=== PATIENT | female | born 1925 | race Caucasian/White ===

== ENCOUNTER 2016-04-08 12:02 | Inpatient (IN) | payer MEDICARE ==
[~2016-04-08] VITALS: Ht 157.5 cm; Wt 62.2 kg
[2016-04-08] MEDS ORDERED: SODIUM CHLORIDE FLUSH 3 ML SYR IV PRN (12:10)
[2016-04-08] MEDS ORDERED: ALBUTEROL 0.083% NEB SOLUTION 2.5 MG/3 ML VIAL INH ONE ×2 (12:10→13:45)
[2016-04-08] MEDS ORDERED: ONDANSETRON 2 MG/ML (Z0FRAN) 2 ML VIAL IV ONE ×2 (12:10→13:45)
[2016-04-08] MEDS ORDERED: SODIUM CHLORIDE FLUSH 10 ML SYR IV PRN (12:10)
[2016-04-08] MEDS ORDERED: SODIUM CHLORIDE 250 ML IV PRN (12:10)
--- NOTE | 2016-04-08 12:25 | NUR ---
RT RT IN ROOM
[2016-04-08 12:43] LABS: MEAN CORPUSCULAR VOLUME 80 FL (80-100); MEAN PLATELET VOLUME 9.1 FL (6.0-9.5); PLATELET COUNT 286 10^3uL (150-450); WHITE BLOOD COUNT 10.52 10^3uL (4.0-11.0)
--- NOTE | 2016-04-08 12:50 | NUR ---
XRAY PORTABLE XRAY IN ROOM
[2016-04-08 12:59] LABS: MEAN CORPUSCULAR HEMOGLOBIN 24.9 PG (26.0-34.0); MEAN CORPUSCULAR HGB CONC 31.3 g/dL (31.0-37.0)
--- NOTE | 2016-04-08 13:02 | NUR ---
UPDATE FAMILY IN ROOM. PATIENT ABLE TO CARRY ON CONVERSATION IN A FEW WORD SENTENCES.
[2016-04-08 13:07] LABS: ALBUMIN 3.9 g/dL (3.4-5.0); ALKALINE PHOSPHATASE 90 U/L (38-126); BUN/CREATININE RATIO 22 (10-20); CALCULATED IONIZED CALCIUM 3.8 mg/dL (3.8-4.6); MAGNESIUM* 1.9 mg/dL (1.6-2.3); TOTAL PROTEIN 7.5 g/dL (6.4-8.5)
[2016-04-08 13:19] LABS: CREATINE KINASE < 20 U/L (30-135)
[2016-04-08] MEDS ORDERED: methylPREDNISolone 125 MG (Solu-MEDROL) VIAL IV ONE (13:20)
[2016-04-08 13:22] LABS: BAND NEUTROPHILS % 4 % (0-6); SEGMENTED NEUTROPHILS % 77 % (51-67)
--- NOTE | 2016-04-08 13:22 | NUR ---
Note clarissa in ED - 04/08/16 at 1329 by [id number] DEPART VERBAL AND WRITTEN DISCHARGE INSTRUCTIONS GIVEN AND UNDERSTOOD. CONDITION STABLE. RELEASED AMBULATORY WITH MOTHER.
[2016-04-08 13:23] LABS: EOSINOPHILS % 1 % (0-4); LYMPHOCYTES # 1.1 #; MONOCYTES # 0.8 #; MONOCYTES % 8 % (3-11); RBC MORPH NORMAL (NORMAL); TOTAL CELLS COUNTED 100
[2016-04-08] MEDS ORDERED: LORazepam 2 MG/ML (ATIVAN) 1 ML VIAL IV ONE (13:40)
[2016-04-08] MEDS ORDERED: morphine INJ 4 MG/ML 1 ML SYRINGE IV ONE (13:45)
[2016-04-08] MEDS ORDERED: BUDESONIDE NEBS 0.5 MG/2ML (PULMICORT) AMP INH ONE (13:45)
[2016-04-08] MEDS ORDERED: FUROSEMIDE 20 MG/2 ML (LASIX) VIAL IV ONE (13:45)
--- NOTE | 2016-04-08 14:30 | NUR ---
STATUS UA OBTAINED AND PATIENT CHANGED INTO GOWN.
--- NOTE | 2016-04-08 14:37 | NUR ---
Dr. Guerin speaking now with Hospitalist, Dr. Lucia, about possible admission.
[2016-04-08 14:51] LABS: BILIRUBIN,URINE Negative (Negative); CLARITY,URINE Cloudy; COLOR,URINE Yellow; GLUCOSE, URINE (UA) Negative (Negative); LEUKOCYTE ESTERASE ,URINE Negative (Negative); UROBILINOGEN,URINE 0.2 mg/dL (0.2-1.0)
--- NOTE | 2016-04-08 14:53 | NUR ---
MED REC COMPLETE--current med list obtained from list provided by skilled nursing MARC from [place].
[2016-04-08] MEDS ORDERED: DOCUSATE SODIUM 100 MG (COLACE) CAP PO PRN (15:00)
[2016-04-08] MEDS ORDERED: ACETAMINOPHEN 325 MG TAB (TYLENOL) PO PRN (15:00)
[2016-04-08] MEDS: ALBUTEROL/IPRATROPIUM 3MG-0.5MG/3ML (DUONEB) NEB VIAL INH SCH ×2 (15:00→19:36)
[2016-04-08] MEDS ORDERED: PROMETHAZINE HCL INJ 12.5 MG in SODIUM CHLORIDE 25 ML IV PRN (15:00)
[2016-04-08] MEDS ORDERED: ALBUTEROL 0.083% NEB SOLUTION 2.5 MG/3 ML VIAL INH PRN (15:00)
[2016-04-08] MEDS ORDERED: MAG HYDROX/AL HYDROX/SIMETH 200-200-20/5 ML (MAG-AL PLUS) 30 ML UDC PO PRN (15:00)
[2016-04-08] MEDS ORDERED: MAGNESIUM HYDROXIDE 80MG/ML (MILK OF MAGNESIA) 30 ML UDC PO PRN (15:00)
[2016-04-08] MEDS ORDERED: CALCIUM CARBONATE CHEWABLE 300 MG (TUMS) TABLET PO PRN (15:00)
[2016-04-08] MEDS ORDERED: ONDANSETRON 4 MG (ZOFRAN) ORAL DISSOLVE TAB PO PRN (15:00)
[2016-04-08 15:04] LABS: RBC,URINE 0-2 /HPF; URINE CENTRIFUGED VOLUME 12 mL
[2016-04-08] MEDS ORDERED: NS FLUSH 3 ML PRN IV (15:15)
--- NOTE | 2016-04-08 15:40 | NUR ---
PT ADMITTED TO 316 FROM ED VIA ED CART, IS LETHARGIC, RESPONDS TO MOVEMENT TO BED FROM CART, OPENS EYES AND ANSWERS LEAD WEB DEVELOPER QUESTIONS APPROPRIATELY. LS COURSE, ABD WITH HYPOACTIVE BS, HEART IRREG, IV IN LFA PATENT WITH NS INFUSING AT 70CC/HR, THIS IS TO CONTINUE PER ОЛЕГ [place]IN[place] FLOOR SPECIALIST, RT & LEAD WEB DEVELOPER IN ROOM.
[2016-04-08 15:46] VITALS: BP 127/66
[2016-04-08 15:47] VITALS: BP 127/66
[2016-04-08] MEDS ORDERED: VANCOMYCIN PHARMACY PROTOCOL IV SCH ×2 (17:00)
[2016-04-08] MEDS ORDERED: VANCOMYCIN 1,000 MG in SODIUM CHLORIDE 250 ML IV ONE (17:00)
--- NOTE | 2016-04-08 17:33 | NUR ---
FABI BENNETT CALLED [facility] IN [place] AND RECEIVED A VOICE MAIL ONLY, SHE LEFT A VOICE MAIL STATING DR. OG WOULD LIKE COPIES OF THE H & P AND DISCHARGE SUMMARY FROM HER RECENT STAY.
--- NOTE | 2016-04-08 17:37 | NUR ---
ORDER FROM DR. OG TO BERNIE CURRENT IVF WHICH IS DONE AT 1735, IV SITE PATENT & WITHOUT REDNESS/EDEMA/PAIN, PT AWAKE, REQ COLD WATER WHICH WAS PROVIDED. CALL LIGHT IN REACH
[2016-04-08] MEDS: meTOprolol TARTRATE 50 MG (LOPRESSOR) TABLET PO SCH (18:18)
[2016-04-08] MEDS ORDERED: DOXYCYCLINE 100 MG (VIBRAMYCIN) TABLET PO SCH (19:00)
[2016-04-08 19:34] VITALS: BP 117/57
[2016-04-08] MEDS: BUDESONIDE NEBS 0.5 MG/2ML (PULMICORT) AMP INH SCH (19:36)
[2016-04-08] MEDS ORDERED: SODIUM CHLORIDE 100 ML ONE (20:11)
[2016-04-08] MEDS ORDERED: PIPERACILLIN/TAZOBACTAM 3.375 GM (ZOSYN) VIAL IV ONE (20:11)
[2016-04-08] MEDS: methylPREDNISolone 125 MG (Solu-MEDROL) VIAL IV SCH (20:21)
[2016-04-08] MEDS: SIMvastatin 40 MG (ZOCOR) TAB PO SCH (20:21)
[2016-04-08] MEDS: clonazePAM 0.5 MG (KlonoPIN) TAB PO SCH (20:21)
[2016-04-08] MEDS: guaiFENesin ER 600 MG (MUCINEX) TAB PO SCH (20:21)
[2016-04-08] MEDS: PIPERACILLIN/TAZOBACTAM 3.375 GM in SODIUM CHLORIDE 100 ML IV SCH ×2 (20:21→21:40)
[2016-04-08] MEDS: MIRTAZAPINE 15 MG (REMERON) TABLET PO SCH (20:21)
[2016-04-08 20:45] LABS: ALBUMIN 3.6 g/dL (3.4-5.0); PHOSPHORUS 3.6 mg/dL (2.4-4.9)
[2016-04-08] MEDS ORDERED: MAGNESIUM 1 GM/100 ML IVPB 100 ML IV SCH (21:20)
[2016-04-08] MEDS ORDERED: MAGNESIUM 1 GM/100 ML IVPB 100 ML IV ONE (21:45)
[2016-04-08] MEDS: POTASSIUM CHLORIDE ER 20 MEQ TABLET PO SCH (21:57)
[2016-04-09 00:22] VITALS: BP 106/71
[2016-04-09 04:20] VITALS: BP 122/70
[2016-04-09] MEDS: PIPERACILLIN/TAZOBACTAM 3.375 GM in SODIUM CHLORIDE 100 ML IV SCH ×3 (06:02→22:02)
[2016-04-09 06:37] LABS: MEAN CORPUSCULAR VOLUME 80 FL (80-100); MEAN PLATELET VOLUME 9.1 FL (6.0-9.5); PLATELET COUNT 302 10^3uL (150-450); WHITE BLOOD COUNT 7.48 10^3uL (4.0-11.0)
--- NOTE | 2016-04-09 06:42 | NUR ---
Patient rests in bed throughout night without needs. Arouses easily but very sleepy during night. No needs at this time.
[2016-04-09 07:05] LABS: MEAN CORPUSCULAR HEMOGLOBIN 24.7 PG (26.0-34.0); MEAN CORPUSCULAR HGB CONC 31.1 g/dL (31.0-37.0)
[2016-04-09] MEDS: BUDESONIDE NEBS 0.5 MG/2ML (PULMICORT) AMP INH SCH ×2 (07:26→21:24)
[2016-04-09] MEDS: ALBUTEROL/IPRATROPIUM 3MG-0.5MG/3ML (DUONEB) NEB VIAL INH SCH ×4 (07:26→21:24)
[2016-04-09 07:33] LABS: ALBUMIN 3.4 g/dL (3.4-5.0); ANION GAP 14.3 MEQ/L (3-15); PHOSPHORUS 3.7 mg/dL (2.4-4.9)
[2016-04-09 07:45] VITALS: BP 143/66
[2016-04-09 07:51] LABS: BAND NEUTROPHILS % 2 % (0-6); EOSINOPHILS % 2 % (0-4); LYMPHOCYTES # 0.3 #; MONOCYTES % 0 % (3-11); RBC MORPH NORMAL (NORMAL); SEGMENTED NEUTROPHILS % 92 % (51-67); TOTAL CELLS COUNTED 100
[2016-04-09] MEDS: POLYETHYLENE GLYCOL 17 GM (MIRALAX) PACKET PO PRN (08:07)
[2016-04-09] MEDS: clonazePAM 0.5 MG (KlonoPIN) TAB PO SCH ×2 (08:09→22:00)
[2016-04-09] MEDS: methylPREDNISolone 125 MG (Solu-MEDROL) VIAL IV SCH ×2 (08:09→22:01)
[2016-04-09] MEDS: NS FLUSH 10 ML PRN IV ×2 (08:09→12:33)
[2016-04-09] MEDS: guaiFENesin ER 600 MG (MUCINEX) TAB PO SCH ×2 (08:10→22:01)
[2016-04-09] MEDS: CHOLECALCIFEROL 1000 INT UNITS (VITAMIN D3) TABLET PO SCH (08:10)
[2016-04-09] MEDS: CYANOCOBALAMIN 1000 MCG (VITAMIN B-12) TABLET PO SCH (08:10)
[2016-04-09] MEDS: meTOprolol TARTRATE 50 MG (LOPRESSOR) TABLET PO SCH ×2 (08:10→17:55)
[2016-04-09] MEDS: POTASSIUM CHLORIDE ER 20 MEQ TABLET PO SCH ×2 (08:11→17:56)
[2016-04-09] MEDS: NS FLUSH 3 ML DAILY IV SCH (08:20)
[2016-04-09] MEDS ORDERED: VANCOMYCIN COMPOUNDED BY PHARMACY IV SCH (08:55)
--- NOTE | 2016-04-09 08:55 | NUR ---
Vancomycin Dosing: Pharmacy managed S: SIRS, Possible Sepsis: Concern for HCAP. Cultures pending. Empirically treating with Pip/Tazo and vancomycin. Strive for sputum culture. O: 89y/o F, wt = 76 kg, SCr = 0.59 CrCl = 63 ml/min A/P: Vancomycin 1250mg IV q24hr. Predicted trough of 15 mcg/mL for therapeutic goal of 15-20mcg/ml. Trough to be drawn before 4th dose (04-11-16 @ 1130). Will monitor and adjust if needed.
[2016-04-09 11:48] VITALS: BP 134/73
[2016-04-09] MEDS: VANCOMYCIN 1250 MG in SODIUM CHLORIDE 250 ML IV SCH (12:33)
[2016-04-09 16:00] VITALS: BP 128/77
[2016-04-09] MEDS: warFARin 2 MG (COUMADIN) TAB PO SCH (17:56)
[2016-04-09] MEDS: LORazepam 0.5 MG (ATIVAN) TABLET PO PRN (19:49)
[2016-04-09 19:57] VITALS: BP 140/77
[2016-04-09] MEDS: SIMvastatin 40 MG (ZOCOR) TAB PO SCH (22:01)
[2016-04-09] MEDS: MIRTAZAPINE 15 MG (REMERON) TABLET PO SCH (22:01)
[2016-04-10] VITALS (7 sets, daily range): BP systolic 132–181; BP diastolic 68–92
[2016-04-10] MEDS: ALBUTEROL/IPRATROPIUM 3MG-0.5MG/3ML (DUONEB) NEB VIAL INH SCH ×4 (05:41→19:23)
[2016-04-10] MEDS: BUDESONIDE NEBS 0.5 MG/2ML (PULMICORT) AMP INH SCH ×3 (05:41→19:23)
[2016-04-10] MEDS: PIPERACILLIN/TAZOBACTAM 3.375 GM in SODIUM CHLORIDE 100 ML IV SCH ×3 (06:28→22:42)
[2016-04-10 06:31] LABS: MEAN CORPUSCULAR VOLUME 81 FL (80-100); MEAN PLATELET VOLUME 9.4 FL (6.0-9.5); PLATELET COUNT 313 10^3uL (150-450); WHITE BLOOD COUNT 16.15 10^3uL (4.0-11.0)
--- NOTE | 2016-04-10 06:46 | NUR ---
Patient rests in bed throughout needs. Reports no pain. States "I need to cough, I feel like my throat is gurgling." Encouraged patient to cough. No needs at this time.
[2016-04-10 07:22] LABS: ALBUMIN 3.6 g/dL (3.4-5.0); MAGNESIUM* 2.1 mg/dL (1.6-2.3)
[2016-04-10 07:23] LABS: MEAN CORPUSCULAR HEMOGLOBIN 25.1 PG (26.0-34.0)
[2016-04-10 07:30] LABS: ANISOCYTOSIS SLIGHT; BAND NEUTROPHILS % 4 % (0-6); EOSINOPHILS % 0 % (0-4); LYMPHOCYTES # 0.6 #; MONOCYTES # 0.2 #; MONOCYTES % 1 % (3-11); RBC MORPH SEE REFERENCE (NORMAL); SEGMENTED NEUTROPHILS % 91 % (51-67); TOTAL CELLS COUNTED 100
--- NOTE | 2016-04-10 07:50 | NUR ---
Patient resting in bed at time of assessment. Alert and orientated X4. Denies any pain at this time. Pt denies any feelings of anxiousness this morning, states she slept well. No complains of shortness of air. Denies any needs or concerns at this time. Will continue to monitor.
[2016-04-10] MEDS: CHOLECALCIFEROL 1000 INT UNITS (VITAMIN D3) TABLET PO SCH (08:05)
[2016-04-10] MEDS: CYANOCOBALAMIN 1000 MCG (VITAMIN B-12) TABLET PO SCH (08:05)
[2016-04-10] MEDS: predniSONE 20 MG (DELTASONE) TABLET PO SCH (08:05)
[2016-04-10] MEDS: POTASSIUM CHLORIDE ER 20 MEQ TABLET PO SCH (08:05)
[2016-04-10] MEDS: meTOprolol TARTRATE 50 MG (LOPRESSOR) TABLET PO SCH ×2 (08:05→17:28)
[2016-04-10] MEDS: guaiFENesin ER 600 MG (MUCINEX) TAB PO SCH ×2 (08:05→22:33)
[2016-04-10] MEDS: clonazePAM 0.5 MG (KlonoPIN) TAB PO SCH ×2 (08:07→22:33)
[2016-04-10] MEDS: NS FLUSH 3 ML DAILY IV SCH ×2 (09:00→19:49)
[2016-04-10] MEDS: VANCOMYCIN 1250 MG in SODIUM CHLORIDE 250 ML IV SCH (11:49)
[2016-04-10] MEDS ORDERED: VANCOMYCIN COMPOUNDED BY PHARMACY IV SCH (13:30)
--- NOTE | 2016-04-10 15:33 | NUR ---
Assumed care from Kay Caldera RN at 1500. Pt sitting up in bed, family at bedside. Skin warm, dry, intact. Resprs nonlabored, even on 2.5L NC. SL intact. Pt denies needs. Call light within reach.
[2016-04-10] MEDS: LORazepam 0.5 MG (ATIVAN) TABLET PO PRN ×3 (15:59→19:55)
--- NOTE | 2016-04-10 16:09 | NUR ---
RT informed this nurse that pt was having a hard time breathing. Upon assessing, pt states she hasn't had this hard of a time breathing for a while. Lung sounds wet per RT. VS 181/92, 101HR, 18 RR, 97% 2.5L, 97.9 temp. PO Ativan given at this time. Dany notified.
--- NOTE | 2016-04-10 16:45 | NUR ---
Rechecked VS: 156/88, 109 HR, 15 RR, 96% O2 on 2.5L. Pt states SOA is better, but still there. Dany aware. Will continue to monitor.
[2016-04-10] MEDS: warFARin 2 MG (COUMADIN) TAB PO SCH (17:28)
--- NOTE | 2016-04-10 19:25 | NUR ---
Pt found reclining in her chair, SPO2 99% on 3 l/min, HR 91, RR 22 and labored, BS fine crackles in all lung tadeo with audible wheezing coming from oropharynx area. Duoneb and Pulmicort given via SVN/MASK with no change in BS post Tx. Dr Saenz informed.
[2016-04-10] MEDS ORDERED: guaiFENesin SYRUP 200 MG/10 ML (ROBITUSSIN) UDC PO PRN (19:35)
[2016-04-10] MEDS: morphine INJ 2 MG/ML 1 ML SYRINGE IV PRN (19:50)
--- NOTE | 2016-04-10 19:55 | NUR ---
Patient very anxious. MS 2mg administered IV for respiratory distress. Ativan 0.5 mg administered also for anxiety. Patient rests in chair. Patient wheezing. Patient calmed down readily after MS given and no further audible wheezing noted. Patient wants to rest in the chair for awhile. Call light within reach.
[2016-04-10] MEDS: MIRTAZAPINE 15 MG (REMERON) TABLET PO SCH (22:33)
[2016-04-10] MEDS: SIMvastatin 40 MG (ZOCOR) TAB PO SCH (22:33)
[2016-04-10] MEDS: NS FLUSH 10 ML PRN IV (22:42)
--- NOTE | 2016-04-11 | NUR ---
Wanting to go to bed. Ambulates well, slow, with walker. Assisted to bed. Call light within reach. Oxygen on.
--- NOTE | 2016-04-11 | NUR ---
Assisted patient to the commode. Does well is weak. No respiratory distress or anxiety. Patient is continent. No skin breakdown. Bernadette care done for patient. Returned to bed. Patient moves slowly, yet does well. Skin color pale. Bed alarm on for safety. Call light within reach.
[2016-04-11 00:05] VITALS: BP 127/84
[2016-04-11 04:17] VITALS: BP 100/73
[2016-04-11] MEDS: LORazepam 0.5 MG (ATIVAN) TABLET PO PRN ×4 (05:00→21:15)
--- NOTE | 2016-04-11 05:00 | NUR ---
Assisted patient to commode. Voided 400 cc yellow urine. Returned to bed. Ativan 0.5mg administered per patient request for anxiety. Respirations 20 and non-labored at this time. Bed alarm on. HOB elevated 35 degrees. Patient states that she is comfortable at this time. SL patent in left wrist area, slightly ecchymotic near site. No erythema noted. Patient denies pain at IV site.
[2016-04-11] MEDS: PIPERACILLIN/TAZOBACTAM 3.375 GM in SODIUM CHLORIDE 100 ML IV SCH ×3 (05:26→22:00)
--- NOTE | 2016-04-11 06:30 | NUR ---
Patient wanting up in the chair this morning. Doing well. Elevates feet when he is resting in the recliner. PICC intact and without complications to site in left arm. Patient remains weak, but is slowly getting stronger. Accu check 116 mg/dl. No concerns voiced at this time. Call light within reach. Addendum: 04/11/16 at 0831 by Corina Sanchez RN Above note on wrong chart. TAMIKA GOINS
[2016-04-11] MEDS: BUDESONIDE NEBS 0.5 MG/2ML (PULMICORT) AMP INH SCH ×2 (07:33→20:03)
[2016-04-11] MEDS: ALBUTEROL/IPRATROPIUM 3MG-0.5MG/3ML (DUONEB) NEB VIAL INH SCH ×4 (07:33→20:03)
--- NOTE | 2016-04-11 07:36 | NUR ---
Pt is sitting up in bed, resting comfortably, SPO2 90% on 3L. Tolerated tx well.
[2016-04-11 07:52] VITALS: BP 124/68
[2016-04-11] MEDS: CHOLECALCIFEROL 1000 INT UNITS (VITAMIN D3) TABLET PO SCH (08:21)
[2016-04-11] MEDS: guaiFENesin ER 600 MG (MUCINEX) TAB PO SCH ×2 (08:21→20:24)
[2016-04-11] MEDS: clonazePAM 0.5 MG (KlonoPIN) TAB PO SCH ×2 (08:21→20:25)
[2016-04-11] MEDS: meTOprolol TARTRATE 50 MG (LOPRESSOR) TABLET PO SCH ×2 (08:21→17:12)
[2016-04-11] MEDS: predniSONE 20 MG (DELTASONE) TABLET PO SCH (08:22)
[2016-04-11] MEDS: CYANOCOBALAMIN 1000 MCG (VITAMIN B-12) TABLET PO SCH (08:22)
[2016-04-11] MEDS: WARFARIN MONITORING XX SCH (08:22)
[2016-04-11] MEDS: ALBUTEROL 0.083% NEB SOLUTION 2.5 MG/3 ML VIAL INH PRN ×3 (09:06→18:20)
--- NOTE | 2016-04-11 09:32 | NUR ---
This nurse sitting at bedside, encouraging patient to take slow, deep breaths. Pt c/o SOA- Resp 20, using accessory muscles. O2 sats 92% on 3L oximask while talking and anxious-changed from nasal canula at this time due to mouth breathing. HR 82. RT has been notified and has given breathing treatments twice, Ativan 0.5mg PO given as ordered for anxiety at 0853. PT and OT tried working with patient this AM, but pt "too short of air to participate." Will cont to monitor patient closely.
--- NOTE | 2016-04-11 09:37 | NUR ---
This nurse remains at bedside. Pt resting with eyes closed- resp rate 20, O2 94% on 3L oximask, HR 82. rouses easily to noises in corona- then begins to c/o SOA. Will cont to monitor patient.
--- NOTE | 2016-04-11 09:52 | NUR ---
Dr. Saenz notified of all c/o SOA- She okays administration of IV morphine now
[2016-04-11] MEDS: morphine INJ 2 MG/ML 1 ML SYRINGE IV PRN ×3 (09:55→19:55)
--- NOTE | 2016-04-11 09:57 | NUR ---
Morphine 2mg IV administered slow IVP over 5 full minutes as ordered and okayed by Dr. Saenz for pt constant c/o SOA while on 3L O2 via oximask- sats 95%, HR 80, RR 20 at this time.
--- NOTE | 2016-04-11 10:48 | NUR ---
Pt awake, eating ice chips. Resp rate 22, O2 sats 93% on 3L oxymask, HR 79.
[2016-04-11 11:45] VITALS: BP 155/75
[2016-04-11] MEDS: VANCOMYCIN 1250 MG in SODIUM CHLORIDE 250 ML IV SCH (12:10)
--- NOTE | 2016-04-11 12:10 | NUR ---
Pt still c/o SOA- Sats 93% on 3L oxymask, HR 89, RR 22 using accessory muscles, retractions noted in neck. Skin warm, dry, pale. Called RT for treatment, Daughter in law from room 306 is at bedside. Lena RT in room now.
[2016-04-11] MEDS ORDERED: VANCOMYCIN COMPOUNDED BY PHARMACY IV SCH (12:15)
--- NOTE | 2016-04-11 12:15 | NUR ---
Vancomycin Dosing: Pharmacy managed S: SIRS, Possible Sepsis: Concern for HCAP. Cultures negative to date. Empirically treating with Pip/Tazo and vancomycin. O: 89y/o F, wt = 76 kg, SCr = 0.6 CrCl = 78 ml/min. WBC = 16.15, bands 4. A/P: current dosing = Vancomycin 1250mg IV q24hr. Trough drawn before 4th dose (04-11-16 @ 1130) = less than 5 mcg/mL. Incresing Vancomycin to 1250mg IV q12h. Predicted trough of 16 mcg/mL for therapeutic goal of 15-20mcg/ml. Next trough to be drawn before 5th dose after change (04-13-16 @ 0830). Will monitor and adjust if needed.
--- NOTE | 2016-04-11 12:42 | NUR ---
Pt verbalizes continued SOA. VSS: BP 142/73, HR 92, 97.4 temporal, 95% on 3L oxymask, RR 20- gurgling sound and audible wheezes noted same as before as well as retractions at clavicles. Pt asks repeatedly, "am I going to get better?" Encouraged pt to try to keep calm, taking slow deep breaths but pt unable to demonstrate this. Addendum: 04/11/16 at 1302 by Eden Benoit RN Morphine 2mg IV given at the above time: 1242 Addendum: 04/11/16 at 1309 by Eden Benoit RN Requested Dr. Saenz to come to assess pt by Romero GOINS for this nurse while I was in room.
--- NOTE | 2016-04-11 12:59 | NUR ---
Pt resting with eyes closed, resp rate 20, not as increased work of breathing compared to before Morphine administration. Gurgles not as loud. O2 remains at 3L oxymask sats 95%. HR 94. Will cont to monitor patient. Addendum: 04/11/16 at 1301 by Eden Benoit RN This nurse sitting at bedside for frequent monitoring and ease her anxiety about being alone in room
--- NOTE | 2016-04-11 13:06 | NUR ---
Dr. Saenz at [facility]. Addendum: 04/11/16 at 1309 by Eden Benoit RN Kari Barnard [facility]
--- NOTE | 2016-04-11 14:09 | NUR ---
Patients family was here to visit- leaves now. Pt awake, no current c/o SOA, eating ice chips. O2 remains on 3L oxymask-sats 94%. RR 22, no gurgling noted at this time. HR 98. Will cont to monitor patient closely. Seems more at ease after Dr. Saenz assessed pt. Addendum: 04/11/16 at 1413 by Eden Benoit RN Zosyn infusing as ordered at 25ml/hr. Pt expectorates small amount thick, yellow sputum at times.
--- NOTE | 2016-04-11 15:24 | NUR ---
Pt appears to be relaxed at this time, pt is on 3L via oxi mask, tolerated tx well.
[2016-04-11 16:00] VITALS: BP 141/68
[2016-04-11] MEDS: warFARin 2 MG (COUMADIN) TAB PO SCH (17:12)
--- NOTE | 2016-04-11 17:38 | NUR ---
Pt has been up to commode- voided 300ml clear yellow urine. Transferred back to bed- O2 remains at 3L oxymask. RR 24-26 when transferring. but recovers to 20 RR once to bed. When asked if she is comfortable in bed, patient states she is comfortable. Supper meds given with applesauce. No c/o at this time. Audible wheezes and gurgling noted at times.
--- NOTE | 2016-04-11 18:25 | NUR ---
Zosyn infusion complete- pt found sitting on edge of bed, eating ice chips. Asks for breathing treatment- RT called. O2 remains on at 3L oxymask, RR 20. Bed alarm and tabs alarm intact for pt safety.
[2016-04-11] MEDS: NS FLUSH 10 ML PRN IV ×2 (19:55→20:25)
--- NOTE | 2016-04-11 19:55 | NUR ---
Patient resting in bed. Oxygen on at 3 liters per mask. Asks for ice chips as it makes her throat feel better. HOB elevated 45 degrees. Is alert. Having some anxiety and air hunger. MS 2mg administered IV. IV leaking and dc'd. IV restarted in right wrist using a 22 gauge needle without difficulty. Patient tolerated well. No concerns at this time.
--- NOTE | 2016-04-11 20:06 | NUR ---
Pt found lying in bed on 3 l/min OM, SPO2 94%, RR 14 and mildly labored, HR 87 with diminished Rhonchi and wheezes throughout all lung tadeo before and after Duoneb and 0.5 mg Pulmicort via SVN/MASK. Pt is very sleepy at this time and does not cough uppon request, but is able to answer questions appropriately.
[2016-04-11] MEDS: SIMvastatin 40 MG (ZOCOR) TAB PO SCH (20:25)
[2016-04-11] MEDS: MIRTAZAPINE 15 MG (REMERON) TABLET PO SCH (20:25)
--- NOTE | 2016-04-11 21:10 | NUR ---
Ativan 0.5 mg administered for anxiety. Patient takes HS Meds well with applesauce. No other concerns at this time.
[2016-04-11 21:52] VITALS: BP 134/74
[2016-04-11] MEDS ORDERED: VANCOMYCIN 1250 MG in SODIUM CHLORIDE 250 ML IV SCH (22:00)
--- NOTE | 2016-04-12 | NUR ---
Patient rests quietly. Resper's 24 and even. Skin warm and dry. Color pale. Oxygen remains on. Bed alarm on for safety.
[2016-04-12 00:23] VITALS: BP 124/79
[2016-04-12 04:19] VITALS: BP 144/73
[2016-04-12] MEDS: PIPERACILLIN/TAZOBACTAM 3.375 GM in SODIUM CHLORIDE 100 ML IV SCH ×2 (05:49→13:38)
--- NOTE | 2016-04-12 06:30 | NUR ---
Patient rested well tonight. Asking for a treatment. RT called. Respirations slightly labored at 24 per minute. Is alert and oriented. Denies pain, just difficulty breathing.
[2016-04-12] MEDS: ALBUTEROL/IPRATROPIUM 3MG-0.5MG/3ML (DUONEB) NEB VIAL INH SCH ×4 (06:42→19:41)
[2016-04-12 06:47] LABS: MEAN CORPUSCULAR VOLUME 83 FL (80-100); PLATELET COUNT 331 10^3uL (150-450); WHITE BLOOD COUNT 10.75 10^3uL (4.0-11.0)
--- NOTE | 2016-04-12 06:54 | NUR ---
MS 2mg administered for respiratory distress/air hunger. Patient given a few ice chips for dryness of her throat. Oxygen remains on at 3 liters per mask. Bed alarm on. Cooperative with cares.
[2016-04-12] MEDS: morphine INJ 2 MG/ML 1 ML SYRINGE IV PRN ×3 (06:56→22:13)
[2016-04-12 07:02] LABS: ALBUMIN 3.5 g/dL (3.4-5.0); MAGNESIUM* 2.1 mg/dL (1.6-2.3); PHOSPHORUS 3.9 mg/dL (2.4-4.9)
[2016-04-12 07:10] LABS: BAND NEUTROPHILS % 8 % (0-6); EOSINOPHILS % 1 % (0-4); LYMPHOCYTES # 1.2 #; MEAN CORPUSCULAR HEMOGLOBIN 25.3 PG (26.0-34.0); MEAN CORPUSCULAR HGB CONC 30.4 g/dL (31.0-37.0); MONOCYTES # 0.4 #; MONOCYTES % 4 % (3-11); SEGMENTED NEUTROPHILS % 74 % (51-67); TOTAL CELLS COUNTED 100
[2016-04-12 07:11] LABS: ANISOCYTOSIS SLIGHT; POIKILOCYTOSIS MODERATE; RBC MORPH SEE REFERENCE (NORMAL)
[2016-04-12 07:16] LABS: ANION GAP 11.8 MEQ/L (3-15)
--- NOTE | 2016-04-12 07:28 | NUR ---
Pt seems to be resting comfortably at this time- RR 18-20. O2 91-92% on 3L oxymask. HR 97. Wakes easily. Skin warm, dry, pink. Yellow gown in place, bed alarm turned on for patient safety.
[2016-04-12 07:55] VITALS: BP 122/67
[2016-04-12] MEDS: CHOLECALCIFEROL 1000 INT UNITS (VITAMIN D3) TABLET PO SCH (09:17)
[2016-04-12] MEDS: guaiFENesin ER 600 MG (MUCINEX) TAB PO SCH ×2 (09:17→22:12)
[2016-04-12] MEDS: meTOprolol TARTRATE 50 MG (LOPRESSOR) TABLET PO SCH ×2 (09:17→17:18)
[2016-04-12] MEDS: CYANOCOBALAMIN 1000 MCG (VITAMIN B-12) TABLET PO SCH (09:17)
[2016-04-12] MEDS: predniSONE 20 MG (DELTASONE) TABLET PO SCH (09:17)
[2016-04-12] MEDS: clonazePAM 0.5 MG (KlonoPIN) TAB PO SCH ×2 (09:17→22:12)
[2016-04-12] MEDS: WARFARIN MONITORING XX SCH (09:18)
[2016-04-12] MEDS: NS FLUSH 3 ML DAILY IV SCH (09:18)
[2016-04-12] MEDS: LORazepam 0.5 MG (ATIVAN) TABLET PO PRN ×2 (09:19→17:18)
[2016-04-12] MEDS: BUDESONIDE NEBS 0.5 MG/2ML (PULMICORT) AMP INH SCH ×2 (10:35→19:41)
[2016-04-12] MEDS: NS FLUSH 10 ML PRN IV ×2 (10:53→22:13)
--- NOTE | 2016-04-12 10:58 | NUR ---
Pt given Morphine 2mg IV for increased SOA. RR 22, O2 sats 95% on 3L oxymask, HR 79. AJ from RT just gave a prn breathing treatment. Pt states it was ineffective. Visitor at bedside. Will cont to monitor patient.
[2016-04-12 12:00] VITALS: BP 139/68
[2016-04-12 16:00] VITALS: BP 132/72
[2016-04-12] MEDS: ALBUTEROL 0.083% NEB SOLUTION 2.5 MG/3 ML VIAL INH PRN (16:36)
--- NOTE | 2016-04-12 17:32 | NUR ---
Pt seems to be resting comfortably in bed, easily wakes to name. Remains on 3L oxymask. RR 20, no distress at this time. Family remains at bedside. Call light within reach- calls appropriately as needed.
[2016-04-12] MEDS: DOXYCYCLINE 100 MG (VIBRAMYCIN) TABLET PO SCH (18:04)
[2016-04-12 19:44] VITALS: BP 138/66
--- NOTE | 2016-04-12 20:00 | NUR ---
Patient resting in bed watching the game with her daughter. Daughter is staying the night. Patient appears more calm with her here. Skin color remains pale. Patient is alert and oriented. Takes her meds with applesauce and then ice chips. Breathing easy at this time. Respirations 24 and non-labored. No other requests at this time.
[2016-04-12] MEDS: methylPREDNISolone 125 MG (Solu-MEDROL) VIAL IV SCH (22:11)
[2016-04-12] MEDS: MIRTAZAPINE 15 MG (REMERON) TABLET PO SCH (22:12)
[2016-04-12] MEDS: DULoxetine 30 MG (CYMBALTA) CAPSULE PO SCH (22:12)
[2016-04-12] MEDS: SIMvastatin 40 MG (ZOCOR) TAB PO SCH (22:13)
--- NOTE | 2016-04-12 22:13 | NUR ---
MS 2mg administered for respiratory/air hunger. Patient repositioned in bed. Sat up in bed 45 degrees to breathe better. Eating ice chips. Up to commode earlier and voided. Daughter sleeping in the recliner. Call light within reach.
[2016-04-13 00:29] VITALS: BP 147/84
[2016-04-13 04:24] VITALS: BP 148/81
--- NOTE | 2016-04-13 06:30 | NUR ---
Patient rested well tonight. At around 5am, patients saturation was 86%. Turned Oxygen up to 4.5 liters per OM. Did let RT know. Patient breathing easier after that. Patient does not like to turn on her sides, due to her difficulty getting her air. Repositioned in bed several times. Patient pleasant and cooperative with cares. Call light within reach.
[2016-04-13 06:41] LABS: MEAN CORPUSCULAR VOLUME 84 FL (80-100); MEAN PLATELET VOLUME 9.4 FL (6.0-9.5); PLATELET COUNT 356 10^3uL (150-450); WHITE BLOOD COUNT 8.82 10^3uL (4.0-11.0)
[2016-04-13 06:50] LABS: MEAN CORPUSCULAR HEMOGLOBIN 24.7 PG (26.0-34.0); MEAN CORPUSCULAR HGB CONC 29.4 g/dL (31.0-37.0)
[2016-04-13 07:00] LABS: BAND NEUTROPHILS % 0 % (0-6); EOSINOPHILS % 0 % (0-4); LYMPHOCYTES # 0.5 #; MONOCYTES % 0 % (3-11); RBC MORPH SEE REFERENCE (NORMAL); SEGMENTED NEUTROPHILS % 94 % (51-67); TOTAL CELLS COUNTED 100
[2016-04-13] MEDS: DOXYCYCLINE 100 MG (VIBRAMYCIN) TABLET PO SCH ×2 (07:00→18:09)
[2016-04-13 07:01] LABS: ANISOCYTOSIS SLIGHT; HYPOCHROMASIA SLIGHT
[2016-04-13] MEDS: BUDESONIDE NEBS 0.5 MG/2ML (PULMICORT) AMP INH SCH (07:09)
[2016-04-13] MEDS: ALBUTEROL/IPRATROPIUM 3MG-0.5MG/3ML (DUONEB) NEB VIAL INH SCH ×4 (07:09→21:48)
--- NOTE | 2016-04-13 07:13 | NUR ---
Pt found lying in bed on 4.5 l/min OM, SPO2 98%, HR 86, RR 18 and non labored, BS coarse crackles in all lung tadeo before and after Duoneb and Pulmicort via SVN/MASK which was tolerated well. No change in BS post Tx, Pt has a weak ineffective loose cough and is too weak to do acapella correctly. O2 titrated to 3.5 l/min.
[2016-04-13 07:16] LABS: ALBUMIN 3.2 g/dL (3.4-5.0); MAGNESIUM* 2.1 mg/dL (1.6-2.3); PHOSPHORUS 4.1 mg/dL (2.4-4.9)
[2016-04-13 08:04] VITALS: BP 111/78
[2016-04-13] MEDS: WARFARIN MONITORING XX SCH (09:00)
[2016-04-13] MEDS: methylPREDNISolone 125 MG (Solu-MEDROL) VIAL IV SCH ×2 (09:40→20:35)
[2016-04-13] MEDS: NS FLUSH 3 ML DAILY IV SCH (09:41)
[2016-04-13] MEDS: DULoxetine 30 MG (CYMBALTA) CAPSULE PO SCH ×2 (09:41→20:35)
[2016-04-13] MEDS: CHOLECALCIFEROL 1000 INT UNITS (VITAMIN D3) TABLET PO SCH (09:41)
[2016-04-13] MEDS: guaiFENesin ER 600 MG (MUCINEX) TAB PO SCH ×2 (09:42→20:35)
[2016-04-13] MEDS: CYANOCOBALAMIN 1000 MCG (VITAMIN B-12) TABLET PO SCH (09:42)
[2016-04-13] MEDS: clonazePAM 0.5 MG (KlonoPIN) TAB PO SCH ×2 (09:42→20:35)
--- NOTE | 2016-04-13 11:21 | NUR ---
Pt found reclining in her chair on 3.5 //min NC, SPO2 97%, HR 90, RR 16 and non labored, BS coarse with wheezes throughout before Duoneb via SVN/MASK, increased wheezes post Tx. O2 titrated to 3 l/min NC
[2016-04-13 11:30] VITALS: BP 185/79
[2016-04-13] MEDS: meTOprolol TARTRATE 50 MG (LOPRESSOR) TABLET PO SCH ×2 (13:24→18:09)
--- NOTE | 2016-04-13 15:44 | NUR ---
Pt found sitting in her chair, SPO2 95%, HR 97, RR 18 with inspiratory and expiratory coarse BS before and after Duoneb via SVN. Pr too weak to effectively use acapella. Loose NPC observed.
--- NOTE | 2016-04-13 16:13 | NUR ---
MULTIDISCIPLINARY MTG/DR. OG: Pt. being treated for HCAP and severe COPD exacerbation. Pt. has been slow to recover and has been very anxious. RT has been working with Pt. on deep breathing exercises and using the acapella. No discharge needs identified at this time.
[2016-04-13 16:23] VITALS: BP 187/87
[2016-04-13 20:11] VITALS: BP 150/88
[2016-04-13] MEDS: SIMvastatin 40 MG (ZOCOR) TAB PO SCH (20:35)
[2016-04-13] MEDS: NS FLUSH 10 ML PRN IV (20:35)
[2016-04-13] MEDS: MIRTAZAPINE 15 MG (REMERON) TABLET PO SCH (20:35)
[2016-04-14 00:22] VITALS: BP 165/80
[2016-04-14 05:40] VITALS: BP 179/90
[2016-04-14] MEDS: DOXYCYCLINE 100 MG (VIBRAMYCIN) TABLET PO SCH ×2 (06:31→18:06)
--- NOTE | 2016-04-14 07:07 | NUR ---
Pt rests in long intervals throughout the night. Denies pain. Resp even, non labored on 2.5L oxygen per nc. SL intact.
--- NOTE | 2016-04-14 07:48 | NUR ---
Patient awake in bed upon shift assessment. Alert and oriented X3. Denies pain or distress but expresses concern regarding high blood pressures. BP currently 168/72. Reinforced plan and times for blood pressure medication. Respirations even and mildly labored on 3L of 02. No edema noted to BLE. Updated on plan of care for shift. Call light in reach.
[2016-04-14] MEDS: ALBUTEROL/IPRATROPIUM 3MG-0.5MG/3ML (DUONEB) NEB VIAL INH SCH ×4 (07:58→20:17)
[2016-04-14] MEDS: BUDESONIDE NEBS 0.5 MG/2ML (PULMICORT) AMP INH SCH ×2 (07:58→20:17)
[2016-04-14 08:14] VITALS: BP 168/78
[2016-04-14] MEDS: guaiFENesin ER 600 MG (MUCINEX) TAB PO SCH ×2 (08:37→20:44)
[2016-04-14] MEDS: clonazePAM 0.5 MG (KlonoPIN) TAB PO SCH ×2 (08:37→20:44)
[2016-04-14] MEDS: DULoxetine 30 MG (CYMBALTA) CAPSULE PO SCH ×2 (08:37→20:44)
[2016-04-14] MEDS: meTOprolol TARTRATE 50 MG (LOPRESSOR) TABLET PO SCH ×2 (08:37→18:06)
[2016-04-14] MEDS: NS FLUSH 3 ML DAILY IV SCH (08:38)
[2016-04-14] MEDS: methylPREDNISolone 125 MG (Solu-MEDROL) VIAL IV SCH (08:38)
[2016-04-14] MEDS: CYANOCOBALAMIN 1000 MCG (VITAMIN B-12) TABLET PO SCH (08:38)
[2016-04-14] MEDS: CHOLECALCIFEROL 1000 INT UNITS (VITAMIN D3) TABLET PO SCH (08:38)
[2016-04-14] MEDS: POLYETHYLENE GLYCOL 17 GM (MIRALAX) PACKET PO PRN (08:42)
[2016-04-14] MEDS: WARFARIN MONITORING XX SCH (08:45)
[2016-04-14 11:17] VITALS: BP 188/84
[2016-04-14 15:37] VITALS: BP 171/81
[2016-04-14 19:55] VITALS: BP 168/82
[2016-04-14] MEDS: MIRTAZAPINE 15 MG (REMERON) TABLET PO SCH (20:44)
[2016-04-14] MEDS: SIMvastatin 40 MG (ZOCOR) TAB PO SCH (20:44)
[2016-04-14] MEDS ORDERED: methylPREDNISolone 125 MG (Solu-MEDROL) VIAL IV SCH (21:00)
[2016-04-15] VITALS (8 sets, daily range): BP systolic 132–184; BP diastolic 64–93
[2016-04-15] MEDS: DOXYCYCLINE 100 MG (VIBRAMYCIN) TABLET PO SCH ×2 (06:09→17:34)
--- NOTE | 2016-04-15 06:18 | NUR ---
Pt rests well throughout the night. Denies pain. SL intact. Resp even, slightly labored on 3L oxygen. Pt winded with exertion, but recovers easily once sitting down. No needs at this time.
[2016-04-15 07:10] LABS: MEAN CORPUSCULAR VOLUME 84 FL (80-100); MEAN PLATELET VOLUME 9.5 FL (6.0-9.5); PLATELET COUNT 398 10^3uL (150-450); WHITE BLOOD COUNT 11.73 10^3uL (4.0-11.0)
[2016-04-15 07:15] LABS: MEAN CORPUSCULAR HEMOGLOBIN 25.6 PG (26.0-34.0); MEAN CORPUSCULAR HGB CONC 30.3 g/dL (31.0-37.0)
[2016-04-15 07:20] LABS: ALBUMIN 3.1 g/dL (3.4-5.0); PHOSPHORUS 3.4 mg/dL (2.4-4.9)
[2016-04-15] MEDS: BUDESONIDE NEBS 0.5 MG/2ML (PULMICORT) AMP INH SCH ×2 (07:41→19:44)
[2016-04-15] MEDS: ALBUTEROL/IPRATROPIUM 3MG-0.5MG/3ML (DUONEB) NEB VIAL INH SCH ×4 (07:41→19:44)
[2016-04-15 07:44] LABS: ANISOCYTOSIS SLIGHT; BAND NEUTROPHILS % 2 % (0-6); EOSINOPHILS % 0 % (0-4); LYMPHOCYTES # 0.5 #; MONOCYTES # 0.6 #; MONOCYTES % 5 % (3-11); RBC MORPH SEE REFERENCE (NORMAL); SEGMENTED NEUTROPHILS % 89 % (51-67); TOTAL CELLS COUNTED 100
[2016-04-15] MEDS: clonazePAM 0.5 MG (KlonoPIN) TAB PO SCH ×2 (08:31→21:26)
[2016-04-15] MEDS: meTOprolol TARTRATE 50 MG (LOPRESSOR) TABLET PO SCH ×2 (08:31→17:34)
[2016-04-15] MEDS: CHOLECALCIFEROL 1000 INT UNITS (VITAMIN D3) TABLET PO SCH (08:31)
[2016-04-15] MEDS: CYANOCOBALAMIN 1000 MCG (VITAMIN B-12) TABLET PO SCH (08:31)
[2016-04-15] MEDS: DULoxetine 30 MG (CYMBALTA) CAPSULE PO SCH ×2 (08:31→21:26)
[2016-04-15] MEDS: guaiFENesin ER 600 MG (MUCINEX) TAB PO SCH ×2 (08:31→21:26)
[2016-04-15] MEDS: predniSONE 20 MG (DELTASONE) TABLET PO SCH (08:31)
[2016-04-15] MEDS: NS FLUSH 3 ML DAILY IV SCH (08:32)
[2016-04-15] MEDS: WARFARIN MONITORING XX SCH (08:35)
--- NOTE | 2016-04-15 14:42 | NUR ---
Pt remains on 3L nc. Has not had any c/o anxiety today. Family has been in and out to visit. Denies needs at this time.
[2016-04-15] MEDS: SIMvastatin 40 MG (ZOCOR) TAB PO SCH (21:26)
[2016-04-15] MEDS: MIRTAZAPINE 15 MG (REMERON) TABLET PO SCH (21:26)
[2016-04-16 04:00] VITALS: BP 140/72
--- NOTE | 2016-04-16 05:35 | NUR ---
Pt sat up in recliner until 2200, was then assisted to restroom and then into bed. Pt has been resting in bed peacefully, has been turned every 2hrs. Denies pain or needs, call light is in reach, will continue to monitor.
[2016-04-16] MEDS: DOXYCYCLINE 100 MG (VIBRAMYCIN) TABLET PO SCH ×2 (06:41→18:02)
[2016-04-16 06:49] LABS: MEAN CORPUSCULAR VOLUME 82 FL (80-100); MEAN PLATELET VOLUME 9.5 FL (6.0-9.5); PLATELET COUNT 408 10^3uL (150-450); WHITE BLOOD COUNT 15.98 10^3uL (4.0-11.0)
[2016-04-16 06:52] LABS: MEAN CORPUSCULAR HEMOGLOBIN 25.2 PG (26.0-34.0); MEAN CORPUSCULAR HGB CONC 30.8 g/dL (31.0-37.0)
[2016-04-16 07:04] LABS: BAND NEUTROPHILS % 0 % (0-6); EOSINOPHILS % 0 % (0-4); LYMPHOCYTES # 2.1 #; MONOCYTES # 0.8 #; MONOCYTES % 5 % (3-11); RBC MORPH NORMAL (NORMAL); SEGMENTED NEUTROPHILS % 82 % (51-67); TOTAL CELLS COUNTED 100
[2016-04-16] MEDS: BUDESONIDE NEBS 0.5 MG/2ML (PULMICORT) AMP INH SCH ×2 (08:35→19:40)
[2016-04-16] MEDS: ALBUTEROL/IPRATROPIUM 3MG-0.5MG/3ML (DUONEB) NEB VIAL INH SCH ×4 (08:35→19:40)
[2016-04-16 08:37] VITALS: BP 142/72
[2016-04-16] MEDS: WARFARIN MONITORING XX SCH (09:00)
--- NOTE | 2016-04-16 09:10 | NUR ---
To X-ray via W/C. Transfers poorly with assist. Tolerated procedure well.
[2016-04-16] MEDS: guaiFENesin ER 600 MG (MUCINEX) TAB PO SCH ×2 (09:58→21:11)
[2016-04-16] MEDS: meTOprolol TARTRATE 50 MG (LOPRESSOR) TABLET PO SCH ×2 (09:59→18:02)
[2016-04-16] MEDS: clonazePAM 0.5 MG (KlonoPIN) TAB PO SCH ×2 (10:00→21:12)
[2016-04-16] MEDS: DULoxetine 30 MG (CYMBALTA) CAPSULE PO SCH ×2 (10:01→21:11)
[2016-04-16] MEDS: CYANOCOBALAMIN 1000 MCG (VITAMIN B-12) TABLET PO SCH (10:01)
[2016-04-16] MEDS: predniSONE 20 MG (DELTASONE) TABLET PO SCH (10:02)
[2016-04-16] MEDS: CHOLECALCIFEROL 1000 INT UNITS (VITAMIN D3) TABLET PO SCH (10:04)
[2016-04-16] MEDS: NS FLUSH 3 ML DAILY IV SCH (10:12)
[2016-04-16 11:53] VITALS: BP 126/64
[2016-04-16 16:23] VITALS: BP 129/63
[2016-04-16] MEDS ORDERED: warFARin 2 MG (COUMADIN) TAB PO ONE (17:00)
--- NOTE | 2016-04-16 18:00 | NUR ---
No complaints of pain today. Resp. even and slightly labored. O2 cont. at 3 L. Alert and oriented.
[2016-04-16 19:42] VITALS: BP 136/63
[2016-04-16] MEDS: SIMvastatin 40 MG (ZOCOR) TAB PO SCH (21:11)
[2016-04-16] MEDS: MIRTAZAPINE 15 MG (REMERON) TABLET PO SCH (21:11)
[2016-04-17 00:15] VITALS: BP 142/81
[2016-04-17 04:22] VITALS: BP 142/86
[2016-04-17] MEDS: DOXYCYCLINE 100 MG (VIBRAMYCIN) TABLET PO SCH ×2 (06:09→17:56)
[2016-04-17 06:44] LABS: ALBUMIN 3.1 g/dL (3.4-5.0); MAGNESIUM* 2.1 mg/dL (1.6-2.3); PHOSPHORUS 3.9 mg/dL (2.4-4.9)
[2016-04-17 06:56] LABS: BASOPHILS % (AUTO) 0 % (0-2); EOSINOPHILS % (AUTO) 0 % (0-4); LYMPHOCYTES # (AUTO) 1.5 X10^3; MEAN CORPUSCULAR VOLUME 83 FL (80-100); MONOCYTES # (AUTO) 1.1 X10^3; MONOCYTES % (AUTO) 8 % (3-11); NEUTROPHILS % (AUTO) 80 % (51-67); PLATELET COUNT 401 10^3uL (150-450); WHITE BLOOD COUNT 13.75 10^3uL (4.0-11.0)
[2016-04-17 07:09] LABS: ANION GAP 8.9 MEQ/L (3-15)
[2016-04-17 07:32] LABS: MEAN CORPUSCULAR HEMOGLOBIN 25.3 PG (26.0-34.0); MEAN CORPUSCULAR HGB CONC 30.5 g/dL (31.0-37.0)
[2016-04-17] MEDS: ALBUTEROL/IPRATROPIUM 3MG-0.5MG/3ML (DUONEB) NEB VIAL INH SCH ×4 (08:00→20:44)
[2016-04-17] MEDS: BUDESONIDE NEBS 0.5 MG/2ML (PULMICORT) AMP INH SCH ×2 (08:00→20:44)
[2016-04-17 08:06] VITALS: BP 150/67
[2016-04-17] MEDS: meTOprolol TARTRATE 50 MG (LOPRESSOR) TABLET PO SCH ×2 (08:22→17:56)
[2016-04-17] MEDS: predniSONE 20 MG (DELTASONE) TABLET PO SCH (08:22)
[2016-04-17] MEDS: CYANOCOBALAMIN 1000 MCG (VITAMIN B-12) TABLET PO SCH (09:46)
[2016-04-17] MEDS: CHOLECALCIFEROL 1000 INT UNITS (VITAMIN D3) TABLET PO SCH (09:46)
[2016-04-17] MEDS: DULoxetine 30 MG (CYMBALTA) CAPSULE PO SCH ×2 (09:47→20:32)
[2016-04-17] MEDS: guaiFENesin ER 600 MG (MUCINEX) TAB PO SCH ×2 (09:47→20:33)
[2016-04-17] MEDS: clonazePAM 0.5 MG (KlonoPIN) TAB PO SCH ×2 (09:47→20:33)
[2016-04-17] MEDS: NS FLUSH 3 ML DAILY IV SCH (09:48)
[2016-04-17] MEDS: WARFARIN MONITORING XX SCH (10:07)
[2016-04-17 11:52] VITALS: BP 152/68
[2016-04-17] MEDS: LORazepam 0.5 MG (ATIVAN) TABLET PO PRN (11:55)
--- NOTE | 2016-04-17 11:57 | NUR ---
RT reports patient complaining of anxiety and requesting med. Med given.
--- NOTE | 2016-04-17 12:45 | NUR ---
Up in chair eating. States is feeling less anxious. Requests sherbet. Sherbet given.
[2016-04-17 15:27] VITALS: BP 119/65
[2016-04-17 19:42] VITALS: BP 111/74
[2016-04-17] MEDS ORDERED: warFARin 1 MG (COUMADIN) TAB PO SCH (20:30)
[2016-04-17] MEDS: MIRTAZAPINE 15 MG (REMERON) TABLET PO SCH (20:32)
[2016-04-17] MEDS: SIMvastatin 40 MG (ZOCOR) TAB PO SCH (20:32)
[2016-04-17] MEDS: POLYETHYLENE GLYCOL 17 GM (MIRALAX) PACKET PO PRN (20:35)
--- NOTE | 2016-04-17 20:47 | NUR ---
Pt found sitting up in her chair on 3 l/min NC w/humidity. SPO2 95%, HR 84, RR 16 and non labored. BS clear and diminished in bilateral upper lobes with diminished crackles bilateral lower lobes before and after Duoneb and Pulmicort via SVN/MASK. BS unchanged post TX.
[2016-04-18 00:48] VITALS: BP 120/77
[2016-04-18 04:22] VITALS: BP 141/71
[2016-04-18] MEDS: DOXYCYCLINE 100 MG (VIBRAMYCIN) TABLET PO SCH (06:12)
[2016-04-18 08:03] VITALS: BP 159/79
[2016-04-18] MEDS: BUDESONIDE NEBS 0.5 MG/2ML (PULMICORT) AMP INH SCH (08:06)
[2016-04-18] MEDS: ALBUTEROL/IPRATROPIUM 3MG-0.5MG/3ML (DUONEB) NEB VIAL INH SCH ×2 (08:06→11:46)
[2016-04-18] MEDS: clonazePAM 0.5 MG (KlonoPIN) TAB PO SCH (09:32)
[2016-04-18] MEDS: guaiFENesin ER 600 MG (MUCINEX) TAB PO SCH (09:32)
[2016-04-18] MEDS: CHOLECALCIFEROL 1000 INT UNITS (VITAMIN D3) TABLET PO SCH (09:33)
[2016-04-18] MEDS: predniSONE 20 MG (DELTASONE) TABLET PO SCH (09:33)
[2016-04-18] MEDS: WARFARIN MONITORING XX SCH (09:33)
[2016-04-18] MEDS: DULoxetine 30 MG (CYMBALTA) CAPSULE PO SCH (09:33)
[2016-04-18] MEDS: meTOprolol TARTRATE 50 MG (LOPRESSOR) TABLET PO SCH (09:33)
[2016-04-18] MEDS: CYANOCOBALAMIN 1000 MCG (VITAMIN B-12) TABLET PO SCH (09:33)
[2016-04-18] MEDS: NS FLUSH 3 ML DAILY IV SCH (09:34)
[2016-04-18 11:46] VITALS: BP 152/69
--- NOTE | 2016-04-18 14:09 | NUR ---
Patient dismissed to Swing Bed status.
--- NOTE | 2016-04-18 19:02 | NUR ---
0810 attempted to wean O2 to 2L nc. Found pt. back on 3L nc when I went back to recheck O2 sat's. 95% on 3L nc today.
== END 2016-04-18 14:09 | disposition swing bed (61) | DRG 871 ==
LOC: ED 12:03 → MED/SURG 14:52
PROVIDERS: ADMIT Internal Medicine; ATTEND Internal Medicine
DX: A41.9 Sepsis, unspecified organism (principal); J18.9 Pneumonia, unspecified organism; J44.0 Chronic obstructive pulmonary disease with (acute) lower respiratory infection; Z66 Do not resuscitate; J44.1 Chronic obstructive pulmonary disease with (acute) exacerbation; E22.2 Syndrome of inappropriate secretion of antidiuretic hormone; F41.9 Anxiety disorder, unspecified; I10 Essential (primary) hypertension; C50.911 Malignant neoplasm of unspecified site of right female breast; Z99.81 Dependence on supplemental oxygen; Z79.01 Long term (current) use of anticoagulants; Z95.2 Presence of prosthetic heart valve
CPT/HCPCS: 36415; 71010; 71020; 80053; 80069; 80202; 81003; 81015; 82550; 82553; 83605; 83735; 83880; 83986; 84484; 85025; 85610; 85730; 86140; 87040; 87070; 87205; 87486; 87581; 87633; 87798; 93005; 93010; 94640; 94760; 96361; 96374; 96375; 99284; 99285

== ENCOUNTER 2016-04-18 14:09 | Inpatient (IN) | payer MEDICARE ==
[~2016-04-18] VITALS: Ht 157.5 cm; Wt 58.9 kg
[~2016-04-18 14:09] MED LIST: AC325T PO; ALBU8.5H6 INH; AMOX1TAB12 PO; ARFO15VI IH; ASPI-586 PO; BECL8.7A5 IH; BUDE0.5A IH; BUDE0.5P MC; CHOL200018 PO; CLON0.5T3 PO; CYAN100088 PO; CYAN1TAB26 PO; DULO30CA3 PO; ENXP100I SC; FERR-74 PO; FERR160T5 PO; HCT25T PO; IPRA0.2S18 INH; IPRA0.2S50 IH; LORA0.5T PO; LORA1TAB PO; METO25TA2 PO; MIRT15TA PO; MTP50T PO; MULT1TAB74 PO; OLN2.5T PO; POLY17PO2 PO; POLY17PO6 PO; PRD10T PO; SENN8.6T6 PO; SERT50TA PO; SIMV40TA2 PO; WALKER; WARF1TAB6 PO; WARF2TAB6 PO
--- NOTE | 2016-04-18 14:09 | NUR ---
Patient admitted to Swing Bed status.
[2016-04-18 14:46] VITALS: BP 152/69
[2016-04-18 15:55] VITALS: BP 133/71
[2016-04-18] MEDS ORDERED: morphine INJ 2 MG/ML 1 ML SYRINGE IV PRN (16:20)
[2016-04-18] MEDS ORDERED: MAG HYDROX/AL HYDROX/SIMETH 200-200-20/5 ML (MAG-AL PLUS) 30 ML UDC PO PRN (16:20)
[2016-04-18] MEDS ORDERED: ACETAMINOPHEN 325 MG TAB (TYLENOL) PO PRN (16:20)
[2016-04-18] MEDS ORDERED: CALCIUM CARBONATE CHEWABLE 300 MG (TUMS) TABLET PO PRN (16:20)
[2016-04-18] MEDS ORDERED: ONDANSETRON 4 MG (ZOFRAN) ORAL DISSOLVE TAB PO PRN (16:20)
[2016-04-18] MEDS ORDERED: SODIUM CHLORIDE FLUSH 10 ML SYR IV PRN (16:20)
[2016-04-18] MEDS ORDERED: SODIUM CHLORIDE FLUSH 3 ML SYR IV PRN (16:20)
[2016-04-18] MEDS ORDERED: MAGNESIUM HYDROXIDE 80MG/ML (MILK OF MAGNESIA) 30 ML UDC PO PRN (16:20)
[2016-04-18] MEDS ORDERED: ALBUTEROL 0.083% NEB SOLUTION 2.5 MG/3 ML VIAL INH PRN (16:20)
[2016-04-18] MEDS ORDERED: LORazepam 0.5 MG (ATIVAN) TABLET PO PRN (16:20)
--- NOTE | 2016-04-18 18:00 | NUR ---
Patient has ambulated to the hallway with CHURN OPERATOR MARGARINE's. Activity tolerance is poor but the patient feels this is an adequate walk. Denied pain throughout the shift.
--- NOTE | 2016-04-18 18:02 | History and Physical (E) ---
History & Physical PCP: Sebastián Ramon MD CC: Dyspnea, deconditioning. HPI Violeta Morris is a 89 year old female [facility] after acute hospitalization 04/08/16 - 04/18/2016 for respiratory failure attributed to COPD with acute exacerbation and HCAP. She had slow improvement during her long hospital stay and she was felt to benefit from further rehab in [place] [facility] care at this facility where she will benefit from PT/OT and close medical supervision of her acute and chronic medical conditions. At time of transition to skilled care she was alert, interactive, oriented. She was breathing easily on 2 L NC. PMH * COPD with acute exacerbation and HCAP 03/2016 - 04/2016 * COPD on home oxygen * Breast Cancer * HTN * HLD * Anxiety: Recent hospitalization, [facility], [place] ( February 2016?) * Depression * Pneumonia PSH * Right mastectomy * Aortic Valve replacement on Coumadin * Renal stents placed * Appendectomy * Cholecystectomy * Colonoscopy- Dr Ibrahim * Cataract surgery ALLERGIES: Please see list at end of report. HOME MEDICATIONS: Please see list at end of report. FH Parents: Father of trauma. Mother was 94 had a stroke Siblings: Two sisters one with DM and an arrhythmia, living, aged 92 yo. Another sister from lung disease. Children: Son from a myelodysplastic cancer. Otherwise healthy daughter. SH Lives in her own home, daughter lives close by, quit smoking 2007, no alcohol use. ROS CONSTITUTION: Some weight loss. HEENT: Very dry mouth but improving. CV: No chest pain, palpitations. PULM: Per HPI, exam. GI: No upset stomach, nausea, vomiting, constipation, or diarrhea. : No dysuria. No blood in urine. MS: No new muscle or joint aches and pains. NEURO: No numbness or tingling. No weakness. INTEG: No new rashes. PSYCH: Increased anxiety but improving. OBJECTIVE Vital Signs Date Time Temp Pulse Resp B/P Pulse Ox O2 Delivery O2 Flow Rate FiO2 04/18/16 11:46 97.9 73 20 152/69 94 Nasal cannula 04/14/16 05:40 3.00 GEN: Up to chair. Alert, interactive. Respiratory effort improving. No acute distress. HEENT: EOMI, pupils reactive and equal, clear sclerae. Somewhat dry oral mucosa. CV: RRR S1 S2 normal with no murmur LUNGS: Diminished but better air movement compared to admit. Wheezes have resolved. ABD: Soft, NT/ND with normal bowel sounds. EXTR: No C/C/E. Warm, dry, well-perfused. INTEG: No rash. Pallor. NEURO: Psychomotor slowing. Mildly tremulous. No apparent focal motor neuro weakness. Laboratory Result - See EMR for more comprehensive lab details. 04/16/16 06:30: Absolute Band Neutrophils 0.0, Band Neutrophils % 0, Basophils # (Auto) , Basophils # (Manual) 0.0, Basophils % (Manual) 0, Basophils (%) (Auto) , Blood Morphology Comment Normal, Differential Total Cells Counted 100, Eosinophils # 0.0, Eosinophils # (Auto) , Eosinophils % (Manual) 0, Eosinophils (%) (Auto) , Hematocrit 29.50L, Hemoglobin 9.1L, Lymphocytes # 2.1, Lymphocytes # (Auto) , Lymphocytes % (Manual) 13L, Lymphocytes (%) (Auto) , Mean Corpuscular Hemoglobin 25.2L, Mean Corpuscular Hemoglobin Concent 30.8L, Mean Corpuscular Volume 82, Mean Platelet Volume 9.5, Monocytes # 0.8, Monocytes # (Auto) , Monocytes % (Manual) 5, Monocytes (%) (Auto) , Neutrophils # 13.1, Neutrophils # (Auto) , Neutrophils (%) (Auto) , Platelet Count 408, Prothromb Time International Ratio 2.2H, Prothrombin Time 24.0H, Red Blood Count 3.61L, Red Cell Distribution Width 17.9H, Segmented Neutrophils % 82H, White Blood Count 15.98H, Metamyelocytes % 0 04/17/16 05:49: Albumin 3.1L, Anion Gap 8.9, Basophils # (Auto) 0.0, Basophils (%) (Auto) 0, Blood Urea Nitrogen 23H, Calcium Level 9.2, Carbon Dioxide Level 37H, Chloride Level 91L, Creatinine 0.58L, Eosinophils # (Auto) 0.0, Eosinophils (%) (Auto) 0 , Estimat Glomerular Filtration Rate 118.7, Estimated GFR (Non- 98.1, Glucose Level 110#, Hematocrit 31.10L, Hemoglobin 9.5L, Lymphocytes # ( Auto) 1.5, Lymphocytes (%) (Auto) 11L, Magnesium Level 2.1, Mean Corpuscular Hemoglobin 25.3L, Mean Corpuscular Hemoglobin Concent 30.5L, Mean Corpuscular Volume 83, Mean Platelet Volume 10.0H, Monocytes # (Auto) 1.1, Monocytes (%) ( Auto) 8, Neutrophils # (Auto) 11.0, Neutrophils (%) (Auto) 80H, Phosphorus Level 3.9, Platelet Count 401, Potassium Level 4.3, Prothromb Time International Ratio 1.9H, Prothrombin Time 21.3H, Red Blood Count 3.76L, Red Cell Distribution Width 18.2H, Sodium Level 137, White Blood Count 13.75H 04/18/16 05:55: Prothromb Time International Ratio 2.0H, Prothrombin Time 22.6H MICRO 04/09 Sputum culture Normal respiratory jeni 04/08 Blood culture Negative to date 04/08 Resp PCR Panel POSITIVE for Coronavirus OC43 IMAGING 04/16/16 CHEST PA/LAT (2 VIEW)* Indication: Shortness of breath PA and lateral chest There are postop changes from valve repair surgery. There is a small left pleural effusion. Lungs are clear. Impression: Postsurgical changes in the chest with small left pleural effusion. 04/10/16 CHEST 1 VIEW, AP/PA ONLY* INDICATION: Respiratory distress. COMPARISON : 04/09/2016 FINDINGS: Single frontal view of the chest is obtained. Heart size is enlarged but unchanged. There does appear to be some mild central venous congestion increased from the prior study. There is mild increase in interstitial markings bilaterally, also increased from the prior exam. There is developing density at the left lung base possibly related to some atelectasis or infiltrate and small left effusion. There is no pneumothorax. IMPRESSION: Cardiomegaly with increasing pulmonary venous congestion and interstitial changes suggestive of developing mild failure/edema. Increased density left lung base may be secondary to a small effusion or to some underlying atelectasis or infiltrate. 04/09/16 CHEST PA/LAT (2 VIEW)* Indication: COPD Comparison: 04/08/2016 Findings : 2 views of the chest are obtained. Heart size is mildly enlarged but unchanged. There is no significant pulmonary vascular congestion. Postoperative changes mediastinum are stable. Chronic findings of COPD are stable. No new pulmonary parenchymal abnormality is seen. There are degenerative changes in the spine. Impression: Stable chronic findings of COPD. No new or acute abnormality is seen when compared to the prior study. 04/08/16 CHEST 1 VIEW, AP/PA ONLY* INDICATION: Dyspnea. DISCUSSION: Single portable upright view of the chest was obtained, comparison 01/09/2016. Cardiomegaly is stable. Median sternotomy is again noted. Changes of COPD with interstitial thickening within the bilateral upper lungs is stable. No focal consolidation or definite pleural fluid identified. IMPRESSION: 1. Stable changes of COPD. ASSESSMENT Violeta Morris is a 89 year old female admitted [facility] after acute hospitalization 04/08/16 - 04/18/2016 for respiratory failure attributed to COPD with acute exacerbation and HCAP. She had slow improvement during her long hospital stay and she was felt to benefit from further rehab in [facility] [facility] care at this facility where she will benefit from PT/OT and close medical supervision of her acute and chronic medical conditions. PLAN * Deconditioning: PT/OT eval and treat. * Acute Respiratory Failure: Slowly resolving. Oxygen protocol. Treat underlying problems. * COPD with Acute Exacerbation: Slowly resolving. Exacerbation due to HCAP, URI. Resp PCR panel positive for coronavirus. Duoneb scheduled, albuterol PRN. Held arformoterol. Sub budesonide for beclomethasone. Methylprednisolone with transition to prednisone. Prednisone taper starting 04/19. Encourage use of PRN albuterol. * Anxiety: Reviewed records from recent mental health hospitalization. Restarted duloxetine 04/12 (had held due to hyponatremia.) Clonazepam scheduled , lorazepam PRN. Olanzapine. Follows with mental health in [place]. * F/E/N: Peripheral IV. General diet as tolerated. I&O, daily weight. * Prophylaxis: Warfarin * Code Status: DNR * Dispo: Transitioned to skilled care at [facility] 04/18 with 14 days of skilled care benefit left. RESOLVING ISSUES * SIRS/Sepsis: Resolving. Attributed to HCAP. * HCAP: Repeat CXR reassuring. Blood culture negative to date. Sputum grew normal jeni. Acapella. Pip-tazo, vanco empirically on admit, de-escalated to doxycycline 04/12. * Hyponatremia: Resolved. Na 126 on admit. Multifactorial... 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 Got NS in ED. Hold further IVF. Held duloxetine, HCTZ initially. Monitored Na trend. * Coagulopathy due to Warfarin: INR 2.6 on admit, yomi to 5.3 04/12. Still elevated. Possibly due to antibiotics. Restarted warfarin 04/17. Monitored INR trend. CHRONIC ISSUES * Breast cancer s/p right radical mastectomy 11/17: Getting [facility] care [facility] (Dr. Driver.) S/P 2 rounds of chemo but she plans to stop. * Mechanical Aortic Valve: Warfarin with goal INR 2.5-3.5. * Constipation: Bowel regimen. * HTN: Metoprolol. Hold HCTZ due to hyponatremia. * HLD: Simvastatin * Depression: Duloxetine on hold due to hyponatremia. Mirtazapine. * B12 Deficiency: Supplement. * Vitamin D Deficiency: Supplement. Allergies/Home Medications Allergies: Coded Allergies: Latex, Natural Rubber (Verified Allergy, Mild, RASH, 10/17/15) Reported Home Medications Scheduled Arformoterol Tartrate (Brovana) 15 MCG IH BID (Reported) Beclomethasone Dipropionate (Qvar) 80 MCG IH BID@0800,1800 (Reported) Cholecalciferol (Vitamin D3) (Vitamin D-3) 2,000 UNIT PO DAILY (Reported) Clonazepam (Klonopin) 1.5 MG PO BID (Reported) Cyanocobalamin (Vitamin B-12) (B-12) 1,000 MCG PO DAILY (Reported) Duloxetine HCl (Cymbalta) 30 MG PO BID (Reported) Hydrochlorothiazide (Hctz) 25 MG PO DAILY (Reported) Ipratropium Burton (Atrovent 0.5mg/2.5ml) 0.5 MG INH QID (Reported) Metoprolol Tartrate (Metoprolol Tartrate) 50 MG PO BID WITH MEALS (Reported) Mirtazapine (Remeron) 15 MG PO HS (Reported) Multivits,Th W-Fe,Other Min (Therems-M) 1 TAB PO DAILY (Reported) Polyethylene Glycol 3350 (Miralax) 17 GM PO EVERY OTHER DAY (Reported) Prednisone (Deltasone) 10 MG PO DAILY (Reported) Sennosides (Senna) 8.6 MG PO DAILY (Reported) Simvastatin (Simvastatin) 40 MG PO HS (Reported) Warfarin Sodium (Warfarin Sodium) 2 MG PO DAILY@1700 (Reported) Scheduled PRN Acetaminophen (Acetaminophen) 325 MG PO Q4H PRN PRN PAIN (Reported) Albuterol Sulfate (Ventolin HFA) 2 PUFF INH Q4H PRN PRN DYSPNEA (Reported) Lorazepam (Lorazepam) 0.5 MG PO Q4H PRN PRN ANXIETY (Reported) Durable Medical Equipment Walker (Walker) 1 EA .As Directed (DME) Copies to: End of Report . ANGIE OG MD Apr 18, 2016 18:02
[2016-04-18] MEDS: meTOprolol TARTRATE 50 MG (LOPRESSOR) TABLET PO SCH (18:28)
[2016-04-18] MEDS: DOXYCYCLINE 100 MG (VIBRAMYCIN) TABLET PO SCH (18:28)
[2016-04-18] MEDS: warFARin 1 MG (COUMADIN) TAB PO SCH (18:28)
[2016-04-18] MEDS ORDERED: DOXYCYCLINE 100 MG (VIBRAMYCIN) TABLET PO SCH (19:00)
[2016-04-18] MEDS ORDERED: BUDESONIDE NEBS 0.5 MG/2ML (PULMICORT) AMP INH ONE (20:00)
[2016-04-18] MEDS: BUDESONIDE NEBS 0.5 MG/2ML (PULMICORT) AMP INH SCH (20:24)
[2016-04-18] MEDS: ALBUTEROL/IPRATROPIUM 3MG-0.5MG/3ML (DUONEB) NEB VIAL INH SCH (20:24)
--- NOTE | 2016-04-18 20:27 | NUR ---
Pt found sitting in her chair on 3 l/min NC, SPO2 94%, HR 80, RR 14 and non labored with clear and diminished BS before and after Duoneb and Pulmicort via SVN/MASK.
[2016-04-18] MEDS: MIRTAZAPINE 15 MG (REMERON) TABLET PO SCH (20:56)
[2016-04-18] MEDS: clonazePAM 0.5 MG (KlonoPIN) TAB PO SCH (20:56)
[2016-04-18] MEDS: DULoxetine 30 MG (CYMBALTA) CAPSULE PO SCH (20:56)
[2016-04-18] MEDS: guaiFENesin ER 600 MG (MUCINEX) TAB PO SCH (20:56)
[2016-04-18] MEDS: SIMvastatin 40 MG (ZOCOR) TAB PO SCH (20:56)
[2016-04-19 00:21] VITALS: BP 148/77
[2016-04-19] MEDS: DOXYCYCLINE 100 MG (VIBRAMYCIN) TABLET PO SCH ×2 (06:06→18:44)
--- NOTE | 2016-04-19 06:07 | NUR ---
Uneventful shift. Pt rests well throughout the night. SL intact. Remains on3L oxygen per nc.
[2016-04-19] MEDS: BUDESONIDE NEBS 0.5 MG/2ML (PULMICORT) AMP INH SCH ×2 (07:40→21:02)
[2016-04-19] MEDS: ALBUTEROL/IPRATROPIUM 3MG-0.5MG/3ML (DUONEB) NEB VIAL INH SCH ×4 (07:40→21:02)
[2016-04-19 08:00] VITALS: BP 141/68
[2016-04-19] MEDS: CHOLECALCIFEROL 1000 INT UNITS (VITAMIN D3) TABLET PO SCH (08:05)
[2016-04-19] MEDS: guaiFENesin ER 600 MG (MUCINEX) TAB PO SCH ×2 (08:05→20:51)
[2016-04-19] MEDS: meTOprolol TARTRATE 50 MG (LOPRESSOR) TABLET PO SCH ×2 (08:05→17:47)
[2016-04-19] MEDS: predniSONE 20 MG (DELTASONE) TABLET PO SCH (08:05)
[2016-04-19] MEDS: DULoxetine 30 MG (CYMBALTA) CAPSULE PO SCH ×2 (08:05→20:51)
[2016-04-19] MEDS: CYANOCOBALAMIN 1000 MCG (VITAMIN B-12) TABLET PO SCH (08:06)
[2016-04-19] MEDS: clonazePAM 0.5 MG (KlonoPIN) TAB PO SCH ×2 (08:06→20:56)
[2016-04-19] MEDS: WARFARIN MONITORING XX SCH (08:06)
--- NOTE | 2016-04-19 10:35 | NUR ---
Pt remains on 3L nc. Pleasant/cooperative with staff. Pt is ambulating in from chair to corona then back to chair with Manny NAIR. Pt denies anxiety at this time. VSS. RT has been in room for scheduled treatments
--- NOTE | 2016-04-19 15:01 | Physical Therapy Evaluation(E) ---
Plan of Care STG: Plan-Treatment Functional: Trans. Safe w/ AD STG Time Frame: 5 Days LTG Time Frame: Other (2 weeks) Additional senior living goals: 1) Patient will improve standing time to 4 minutes prior to sitting rest break. 2) The patient will score a minimum of 19/28 on the Tinetti Balance Assessment.t Goals Discussed/Agreed: Yes Plan: Balance, Functional Strengthening, Gait & Transfer Training, Neuro Re- Education, Progressive Ambulation, Strengthening, Transfer Training, Therapy Excercise Discharge Recommendations: NH placement Aware of Dx and Prognosis: Yes Aware of Risk & Benefit: Yes To be Seen: Daily Sunday-Sunday Initial Evaluation Service Date/Time 04/19/16, 15:00 Primary Diagnosis: (1) COPD with acute exacerbation ICD Code: J44.1 (2) Gait disturbance ICD Code: R26.9 (3) Weakness ICD Code: R53.1 (4) SIRS (systemic inflammatory response syndrome) ICD Code: R65.10 Treatment Diagnosis: (1) Activity intolerance ICD Code: R68.89 (2) Gait disturbance ICD Code: R26.9 (3) Weakness ICD Code: R53.1 Onset Date: 04/04/2016 Start of Care Date: Apr 19, 2016 Resuscitation Status: Do Not Resuscitate Precaution/Isolation: Standard Precautions Fall Level: Low Risk 25-50 Initial Assessment Reason for Rehab: Increase Mobility, Increase Strength, Increase Balance, Increase AROM, Increase Transfers, Increase Endurance Medical History: Anxiety, Cancer, COPD, Depression, Hypertension Pain Location/Comment Patient denies pain. Prior Level of Function The patient lives at home alone. She has a daughter who lives nearby. The patient was independent in functioning, and reports starting to need continuous 02 more often. Rehabilitation Potential: Fair (Patient has had an extensive ) Rehab Potential Based on Patient has significant anxiety and reports she is fearful of starting new activities secondary to being unsure if she can do them. Assistive Device: FWW Distance Walked in Feet 23 feet with FWW ,CGA on 2L 02 via MT. Gait Description: Short Step Length ROM/Strength Hip Mobility: Right Hip Strength: 3+ Left Hip Strength: 3+ Knee Flexion Mobility: Right Knee Flexion Strength: 3+ Left Knee Flexion Strength: 3+ Knee Extension Mobility: Right Knee Extension Strength: 4 Left Knee Extension Strength: 4 Ankle Mobility: Right Ankle Strength: 4 Left Ankle Strength: 4 Assessment/Goals Initial Transfer Assessment Rolling: Not Assessed/NA Sit-Supine: Not Assessed/NA Sitting Edge of Bed: Supervision or setup (sitting in chair) Supine-Sit: Not Assessed/NA Sit-Stand from Bed: Minimal Assistance Stand-Sit: Minimal Assistance Ambulation: Contact Guard Assist Distance Walked in Feet 23 feet slow. Transfer Short Term Goals Rolling: Supervision or setup Sit-Supine: Supervision or setup Sitting Edge of Bed: Supervision or setup Supine-Sit: Supervision or setup Sit-Stand from bed: Contact Guard Assist Stand-Sit: Contact Guard Assist Ambulation: Contact Guard Assist Distance to Walk in Feet A minimum 50 feet. Transfer Bridges Supervisor Goals Rolling: Supervision or setup Sit-Supine: Supervision or setup Sitting Edge of Bed: Supervision or setup Supine-Sit: Supervision or setup Sit-Stand from bed: Supervision or setup Stand-Sit: Supervision or setup Ambulation: Supervision or setup Distance to Walk in Feet A minimum of 100 feet with FWW. Treatments Ambulation Weight Bearing Status: Full Assistive Device: FWW Gait Assist: Min Assist/Contact Guard Patient ambulates 25 feet on 2L 02. Heart rate 96 bpm, 02 saturation 80%. Coding Time In: 1012 Time Out: 1042 Total Minutes: 30 Code & Unit: 38354 Eval< 30 min, 11658 Gait Training 15 JIMBO Hernandez PT Apr 19, 2016 15:01
[2016-04-19 15:44] VITALS: BP 149/70
--- NOTE | 2016-04-19 16:00 | PT Daily Note Inpatient (E) ---
PT Daily Treatment Service Date/Time 04/19/16, 15:47 Medical Diagnosis: (1) COPD with acute exacerbation ICD Code: J44.1 (2) Gait disturbance ICD Code: R26.9 (3) Weakness ICD Code: R53.1 (4) SIRS (systemic inflammatory response syndrome) ICD Code: R65.10 Physical Therapy: (1) Activity intolerance ICD Code: R68.89 (2) Gait disturbance ICD Code: R26.9 (3) Weakness ICD Code: R53.1 Precaution/Isolation: Standard Precautions Resuscitation Status: Do Not Resuscitate Fall Level: Low Risk 25-50 Subjective Pt sitting up in recliner. Pt motivated and ready to exercise. Oxygen Delivery: Nasal cannula O2 liters/minute: 3L Treatments Sit, Stand, Supine: Sitting, Long Sitting Extremity: Both Lower Extremity Assistance: AROM Repetition: 1 x 20 Exercise: AP, QS, Heel Slides, Hip Abduction, SLR, LAQ, Hip Flexion Transfers Sit-Stand from bed: Contact Guard Assist (from recliner.) Stand-Sit: Contact Guard Assist Gait Ambulation: Contact Guard Assist Distance Walked: 60 feet Assistive Device: FWW Gait Description: Decreased Meseret, Slow, Short Step Length, Flexed Trunk Gait Training: Limitations: Fatigue Education/Plan Assessment Pt demonstrates increased activity tolerance. Safety Awareness: Intact Response to Treatment: Improving Coding Time In: 15:33 Time Out: 15:54 Total Minutes: 21 Codes/Units: 85286 Exercise Therp 15 m Ray Coburn PTA Apr 19, 2016 16:00
--- NOTE | 2016-04-19 17:30 | NUR ---
O2 weaned to 2L nc, 93%. Pt. more positive about breathing and O2 sat's today. Prod. cough this AM of brown sputum, loose NPC this PM.
[2016-04-19] MEDS: warFARin 1 MG (COUMADIN) TAB PO SCH (17:47)
--- NOTE | 2016-04-19 18:40 | NUR ---
Pt sitting upright at this time, eating supper meal. Took pm meds whole in applesauce.
[2016-04-19 19:48] VITALS: BP 143/76
--- NOTE | 2016-04-19 20:00 | NUR ---
Patient is resting in recliner chair. Is alert and oriented at present time. Visiting with family at present. Skin warm and dry. Color slightly pale. Oxygen remains on at 2 liters per n/c. No SOA or anxiety at this time. Call light within reach. No concerns at this time.
[2016-04-19] MEDS: SIMvastatin 40 MG (ZOCOR) TAB PO SCH (20:51)
[2016-04-19] MEDS: MIRTAZAPINE 15 MG (REMERON) TABLET PO SCH (20:51)
--- NOTE | 2016-04-19 21:05 | NUR ---
Pt found on 2 l/min NC, SPO2 92%, HR 91, RR 18 and non labored with clear and diminished BS before and after Duoneb/Pulmicort via SVN/MASK.
--- NOTE | 2016-04-20 | NUR ---
Repositioned in bed. HOB elevated 45 degrees. No shortness of air or respiratory difficulties tonight. Oxygen remains on at 2 liters. Ambulates to the bathroom with assist of one. No SOA when up. Taking ice chips. No concerns or needs at this time.
[2016-04-20] MEDS: DOXYCYCLINE 100 MG (VIBRAMYCIN) TABLET PO SCH ×2 (06:32→18:09)
[2016-04-20] MEDS: BUDESONIDE NEBS 0.5 MG/2ML (PULMICORT) AMP INH SCH ×2 (07:31→20:15)
[2016-04-20] MEDS: ALBUTEROL/IPRATROPIUM 3MG-0.5MG/3ML (DUONEB) NEB VIAL INH SCH ×4 (07:31→20:15)
--- NOTE | 2016-04-20 07:43 | NUR ---
Pt upright in bed, Leslie RT in room giving breathing treatment. Pt alert/oriented. Will get up to chair for bfst meal. IV SL intact to Lt wrist. Call light within reach.
[2016-04-20] MEDS: CHOLECALCIFEROL 1000 INT UNITS (VITAMIN D3) TABLET PO SCH (08:22)
[2016-04-20] MEDS: CYANOCOBALAMIN 1000 MCG (VITAMIN B-12) TABLET PO SCH (08:22)
[2016-04-20] MEDS: guaiFENesin ER 600 MG (MUCINEX) TAB PO SCH ×2 (08:23→21:25)
[2016-04-20] MEDS: DOCUSATE SODIUM 100 MG (COLACE) CAP PO PRN (08:23)
[2016-04-20] MEDS: clonazePAM 0.5 MG (KlonoPIN) TAB PO SCH ×2 (08:23→21:22)
[2016-04-20] MEDS: DULoxetine 30 MG (CYMBALTA) CAPSULE PO SCH ×2 (08:23→21:21)
[2016-04-20] MEDS: meTOprolol TARTRATE 50 MG (LOPRESSOR) TABLET PO SCH ×2 (08:23→17:14)
[2016-04-20] MEDS: predniSONE 20 MG (DELTASONE) TABLET PO SCH (08:23)
[2016-04-20] MEDS: WARFARIN MONITORING XX SCH (08:27)
[2016-04-20 08:36] VITALS: BP 149/65
--- NOTE | 2016-04-20 11:56 | NUR ---
BLE edema noted- ALBINO hose placed by Mildred CAMACHO
--- NOTE | 2016-04-20 14:11 | OT Therapy Evaluation (E) ---
POC Plan of Care Problems Identified: Activity Tolerance, ADLs, Balance, Lt UE Strength, Rt UE Strength, Safety Awareness Plan: Evaluation-OT, ADL/Self Care Management, Therapy Exercises, Therapy Activities, Pt/Family/Staff Education Frequency of OT: Five times weekly Duration of OT: 2 weeks Therapy to Include: ADL training, Balance with ADLs, Pt/family education, Therapeutic activities, UE strengthing Discharge Recommendations: NH placement Pt would benefit from skilled occupational therapy services to improve independence with self care tasks and return to prior level of function with increased safety awareness and education on energy conservation techniques. Pt. Aware of Dx and Prognosis: Yes Pt. Aware of Risk & Benefit: Yes Short Term Goals STG Time Frame: 5 Days Will Perform Grooming: With Setup/SBA Will Dress Upper Extremity: With Setup/SBA Will do Toileting: With Setup/SBA Will Perform Funct Transfer: With Setup/SBA STG #1 Pt will participate in 15 min of ther-ex with use of energy conservation techniques as needed. Long-Term Goals LTG Time Frame: 2 Weeks Will Dress Upper Extremity: Independently Will Dress Lower Extremity: Independently Will do Tub/Shower Transfer: With Setup/SBA Will Bathe Self: With Setup/SBA Will do Toilet Transfers: Independently Will do Toilieting: Independently LTG # 1 Pt will verbalize and demonstrate understanding of energy conservation techniques including diaphragmatic breathing to ease shortness or breath and improve performance during daily activities. Inital Evaluation/General Service Date/Time 04/20/16, 14:10 Primary Diagnosis: (1) COPD with acute exacerbation ICD Code: J44.1 (2) Gait disturbance ICD Code: R26.9 (3) Weakness ICD Code: R53.1 (4) SIRS (systemic inflammatory response syndrome) ICD Code: R65.10 Treatment Diagnosis: (1) Weakness ICD Code: R53.1 Onset Date: 04/08/16 Start of Care Date: Apr 20, 2016 Precaution/Isolation: Standard Precautions Fall Level: Low Risk 25-50 Resuscitation Status: Do Not Resuscitate Reason for Referral: Evaluation and Treat Pertinent Medical History: Anxiety, Cancer, COPD, Depression, Hypertension Pain Level: 0 Oxygen Needed: Nasal cannula (Has home oxygen) O2 liters/minute: 2 Rational for Skilled Treatment: Allow return to home, Deconditioning, Maximize Safety, Prevent Falls Living Status Prior to Admit: [facility] (Lives in rest home at [place].) Prior Level of Function: Home Oxygen Pt reports independence with self care tasks most of the time. Requires some assistance with bathing tasks and occasionally dressing when feeling tired. Pt eats the meals served at the rest home. Plans Following Discharge: [facility] Support Persons: Adult Child Entry Into Home: Level Entry Shower and Tub Type: Tub/shower combo-rails Assist Devices: Front Wheel Walker, Tub Bench Toilet Type: Raised with grab bars Comment Pt uses a FWW for functional mobility. No history of falls. Pt is very motivated to get better and return home. Current Function Assessment Mental Status Patient Orientation: Person Mental Status: Alert, Anxious (Pt anxious during evaluation. States she is worried about her limited water intake as she is used to drinking water consistently throughout the day. ) Cognition Attention: Intact Memory: Impaired Safety/Judgement: Intact Visual/Perceptual Skills Glassess: Yes (No lined trifocals ) Hearing: Impaired Hand Dominance Hand Dominance: Right ROM/Strength Range of Motion : ROM: WNL Strength Comment BUE 4-/5 Skin and Positioning Integumentary: Rt UE edema, Lt UE edema Comment Noted bilateral +2 pitting edema in bilateral ankles. Endurance Activity Endurance: Becomes SOB, Instructions provided, Needs energy saving techn, Poor, Requires freq rest breaks Bed Mobility/Transfers Supine from Sit: CGA Sit to Stand: CGA Chair Transfer: CGA Sitting Balance: SBA ADLs Hand : Comment Pt set up assistance for feeding. Dressing Dressing: Minimum assist Bathing Shower/Bench Transfer Ability: CGA Bathing- Type of Assistance: Minimum Assist Toileting Toilet Hygiene: Minimum Assist Toilet Transfer Ability: CGA Additional Assessment/Comments Pt presents with decreased strength, decreased activity tolerance, decreased independence with self care tasks including toileting, dressing, bathing and grooming tasks. Pt's comorbidities affect occupational performance with pt's requiring modifications of tasks and assistance including minimal assistance and verbal cues, placing patient at a moderate complexity level. CPT/G Codes Time In: 10:00 Time Out: 10:46 Total Minutes: 46 (05/10 eval, 05/06 ADL) Codes/Minutes: 69737 ADL EA (Pt completed sit to stand transfer with CGA. Completed functional mobility with use of FWW from chair to other side of room to water plant. Pt able to hold container and water plant with SBA. When walking back to chair, pt required a therapeutic rest break to ease shortness of breath. Educated and discussed diaphramagtic breathing to ease shortness of breathing. Following demonstration required moderate verbal cueing for proper technique. At chair, pt demonstrated good safety awareness of reaching back for chair prior to sitting. Noted- pt demonstrated pitting edema in bilateral ankles. Educated and discussed elevating feet to reduce swelling. Educated nursing of applying TG shapes to reduce swelling and elevation. ) SONIA BARRAZA OT Apr 20, 2016 14:11
--- NOTE | 2016-04-20 14:26 | OT Activity Assessment (E) ---
Activity Assessment Service Date/Time 04/20/16, 14:26 Activities Games: Hooz[employer] Card Games: [place] [id number] Gardening: Wong, House Plants, Vegetables Outing: Ballgames Music: 30's & 40's, 50's & 60's Sports: Basketball, Football Television: Sports, Other ([employer] ) Other Activities: Other (Word Searches ) Comment Pt enjoys participating in the above listed activities. Pt would benefit from playing games with one of the aide's when available to reduce anxiety of being in the hospital. SONIA BARRAZA OT Apr 20, 2016 14:26
--- NOTE | 2016-04-20 15:43 | PT Daily Note Inpatient (E) ---
PT Daily Treatment Service Date/Time 04/20/16, 15:31 Medical Diagnosis: (1) COPD with acute exacerbation ICD Code: J44.1 (2) Gait disturbance ICD Code: R26.9 (3) Weakness ICD Code: R53.1 (4) SIRS (systemic inflammatory response syndrome) ICD Code: R65.10 Physical Therapy: (1) Activity intolerance ICD Code: R68.89 (2) Gait disturbance ICD Code: R26.9 (3) Weakness ICD Code: R53.1 Precaution/Isolation: Standard Precautions Resuscitation Status: Do Not Resuscitate Fall Level: Low Risk 25-50 Subjective Pt sitting up in recliner and ready to exercise. Pt very motivated to get better. Oxygen Delivery: Nasal cannula O2 liters/minute: 2 Treatments Sit, Stand, Supine: Supine, Sitting Extremity: Both Lower Extremity Assistance: AROM Repetition: 1 x 20 Exercise: AP, QS, Heel Slides, Hip Abduction, SLR, LAQ, Hip Flexion, Bridge Transfers Rolling: Supervision or setup (using bed rail) Sit-Supine: Contact Guard Assist Sitting Edge of Bed: Complete Logan Supine-Sit: Supervision or setup (with cues to roll on side first.) Sit-Stand from bed: Contact Guard Assist (from chair.) Stand-Sit: Contact Guard Assist (with cues to reach back for chair or bed.) Gait Ambulation: Contact Guard Assist Distance Walked: 60 feet, 30 feet Assistive Device: FWW Gait Description: Decreased Meseret, Slow, Short Step Length, Flexed Trunk Gait Training: Limitations: SOB (mild.), Fatigue Education/Plan Assessment Pt demonstrates increased activity tolerance. Continue to be motivated to go home. Response to Treatment: Improving Plan Patient will be seen: Daily Sunday-Sunday Coding Time In: 14:57 Time Out: 15:34 Total Minutes: 37 Codes/Units: 14928 Exercise Therp 15 m (37 minutes) Ray Coburn PTA Apr 20, 2016 15:43
[2016-04-20] MEDS: warFARin 1 MG (COUMADIN) TAB PO SCH (17:14)
--- NOTE | 2016-04-20 18:30 | NUR ---
Pt expresses concern with fluid restrictions- explained that her fluids are being monitored and she could still have a cup of coffee and ice chips with supper without going over the shift limit. Pt verbalizes understanding. THanks nurse for care received. Pt up in chair, family at bedside.
[2016-04-20 20:02] VITALS: BP 126/59
--- NOTE | 2016-04-20 21:00 | NUR ---
Patient had visitors this evening and now continues up in recliner. States she is scared and when questioned she said she worried about her family having to do so much for her since she was here in the hospital and they had to come so far to see her. Patient reassured and prayed with per patient request. Assessment done. Patient's lungs are coarse throughout and bowel sounds are active x 4. Heart rate regular. 1+ edema in lower extremities. Denies needs. Assisted to put feet up in recliner and warm blanket brought for legs.
[2016-04-20] MEDS: MIRTAZAPINE 15 MG (REMERON) TABLET PO SCH (21:21)
[2016-04-20] MEDS: SIMvastatin 40 MG (ZOCOR) TAB PO SCH (21:22)
[2016-04-21] MEDS: BUDESONIDE NEBS 0.5 MG/2ML (PULMICORT) AMP INH SCH ×2 (07:24→20:00)
[2016-04-21] MEDS: ALBUTEROL/IPRATROPIUM 3MG-0.5MG/3ML (DUONEB) NEB VIAL INH SCH ×4 (07:25→20:00)
[2016-04-21] MEDS: CHOLECALCIFEROL 1000 INT UNITS (VITAMIN D3) TABLET PO SCH (08:21)
[2016-04-21] MEDS: predniSONE 10 MG (DELTASONE) TABLET PO SCH (08:21)
[2016-04-21] MEDS: guaiFENesin ER 600 MG (MUCINEX) TAB PO SCH ×2 (08:22→20:26)
[2016-04-21] MEDS: meTOprolol TARTRATE 50 MG (LOPRESSOR) TABLET PO SCH ×2 (08:22→17:19)
[2016-04-21] MEDS: POLYETHYLENE GLYCOL 17 GM (MIRALAX) PACKET PO PRN (08:22)
[2016-04-21] MEDS: CYANOCOBALAMIN 1000 MCG (VITAMIN B-12) TABLET PO SCH (08:22)
[2016-04-21] MEDS: DULoxetine 30 MG (CYMBALTA) CAPSULE PO SCH ×2 (08:22→20:26)
[2016-04-21] MEDS: clonazePAM 0.5 MG (KlonoPIN) TAB PO SCH ×2 (08:22→20:26)
[2016-04-21 08:26] VITALS: BP 140/66
[2016-04-21] MEDS: DOXYCYCLINE 100 MG (VIBRAMYCIN) TABLET PO SCH ×2 (08:28→19:13)
--- NOTE | 2016-04-21 09:00 | NUR ---
Pt sitting up in chair, eating breakfast. Skin warm, dry, intact. Resprs nonlabored, even on RA. Denies pain. SL intact. Denies needs. Call light within reach.
[2016-04-21] MEDS: WARFARIN MONITORING XX SCH (09:03)
--- NOTE | 2016-04-21 10:11 | OT Daily Note Inpatient (E) ---
OT Daily Treatment Service Date/Time 04/21/16, 10:10 Primary Diagnosis: (1) COPD with acute exacerbation ICD Code: J44.1 (2) Gait disturbance ICD Code: R26.9 (3) Weakness ICD Code: R53.1 (4) SIRS (systemic inflammatory response syndrome) ICD Code: R65.10 Treatment Diagnosis: (1) Weakness ICD Code: R53.1 Onset Date: 04/08/16 Start of Care Date: Apr 20, 2016 Precaution/Isolation: Standard Precautions Fall Level: Low Risk 25-50 Resuscitation Status: Do Not Resuscitate Current Activity: Agrees to participate, Pleasant & cooperative General Informantion Pt reports she slept well last night. Wore TG shapes during the day and did not bother her as much as Khoa Hose. States she is not as fatigued in the afternoons compared to the mornings. Is worried about only being able to drink so much water. Pain Level: 0 Oxygen Needed: Nasal cannula (Has home oxygen) O2 liters/minute: 2 Current Function Assessment Cognition Attention: Intact Memory: Impaired Safety/Judgement: Intact Visual/Perceptual Skills Glassess: Yes (No lined trifocals ) Hearing: Impaired Hand Dominance Hand Dominance: Right Dressing Comment Pt able to don socks following set up with increased time. Pt able to don pants and pull up with CGA. In sitting, pt applied sweater with minimal assistance for repositioning. Provided additional information regarding energy conservation techniques. Bathing Aide assisting with sponge bath upon therapist arrival. Following set up, pt completed washing of upper body with increased time. Therapist applied lotion to therapist's BLE's and applies TG shapes for compression to reduce edema. Completed application of applying deodorant with increased time following set up. Pt completed sit to stand transfer with CGA for clothing retrieval on other side of room. Pt able to place clothing on walker and ambulate back safely. Required assistance from therapist for O2 cording. In sitting, pt required therapeutic rest break and completed diaphragmatic breathing prior to completing dressing task. Education/Assessment Education Provided: Energy conservation Education Evalution: Demonstrate understanding Teaching Method: Demonstration, Practice/repetition, Verbal Readiness to Learn: Good Treatment Tolerance: Michelle trmnt w/o complaints Rehabilitation Potential: Good Pt able to complete dressing task including clothing retrieval with CGA to minimal assistance. Pt able to apply diaphragmatic breathing technique with cueing for proper technique in between activities. POC Plan of Care Problems Identified: Activity Tolerance, ADLs, Balance, Lt UE Strength, Rt UE Strength, Safety Awareness Plan: Evaluation-OT, ADL/Self Care Management, Therapy Exercises, Therapy Activities, Pt/Family/Staff Education Frequency of OT: Five times weekly Duration of OT: 2 weeks Therapy to Include: ADL training, Balance with ADLs, Pt/family education, Therapeutic activities, UE strengthing Discharge Recommendations: NH placement Pt. Aware of Dx and Prognosis: Yes Pt. Aware of Risk & Benefit: Yes Short Term Goals Will Perform Grooming: With Setup/SBA Will Dress Upper Extremity: With Setup/SBA Will do Toileting: With Setup/SBA Will Perform Funct Transfer: With Setup/SBA STG #1 Pt will participate in 15 min of ther-ex with use of energy conservation techniques as needed. Irrigator Gravity Flow Goals Will Dress Upper Extremity: Independently Will Dress Lower Extremity: Independently Will do Tub/Shower Transfer: With Setup/SBA Will Bathe Self: With Setup/SBA Will do Toilet Transfers: Independently Will do Toilieting: Independently LTG # 1 Pt will verbalize and demonstrate understanding of energy conservation techniques including diaphragmatic breathing to ease shortness or breath and improve performance during daily activities. CPT/G Codes Time In: 9:13 Time Out: 9:47 Total Minutes: 34 ( ADL) Codes/Minutes: 63878 ADL EA () SONIA BARRAZA OT Apr 21, 2016 10:11
--- NOTE | 2016-04-21 10:28 | PT Daily Note Inpatient (E) ---
PT Daily Treatment Service Date/Time 04/21/16, 10:22 Medical Diagnosis: (1) COPD with acute exacerbation ICD Code: J44.1 (2) Gait disturbance ICD Code: R26.9 (3) Weakness ICD Code: R53.1 (4) SIRS (systemic inflammatory response syndrome) ICD Code: R65.10 Physical Therapy: (1) Activity intolerance ICD Code: R68.89 (2) Gait disturbance ICD Code: R26.9 (3) Weakness ICD Code: R53.1 Precaution/Isolation: Standard Precautions Resuscitation Status: Do Not Resuscitate Fall Level: Low Risk 25-50 Subjective pt A&O x3, agrees to PT although states she feels better in the afternoon to exercise Pain Level: 0 Oxygen Delivery: Nasal cannula (Has home oxygen) O2 liters/minute: 3 Treatments Sit, Stand, Supine: Long Sitting (& sitting) Extremity: Both Lower Extremity Assistance: AROM Repetition: 1 x 10 Exercise: AP, Heel Slides, Hip Abduction, SLR, LAQ, Hip Flexion, External Rotation, Internal Rotation Transfers Sit-Stand from bed: Supervision or setup Stand-Sit: Supervision or setup Gait Ambulation: Contact Guard Assist Distance Walked: 40' Weight Bearing Status: Full Assistive Device: FWW Gait Assist: Min Assist/Contact Guard Gait Description: Normal:No Sig. Deviation, Safe w/ Assistive Device, Flexed Trunk Gait Training: Limitations: Fatigue Education/Plan Assessment Pt tolerated treatment well despite the early time Safety Awareness: Intact Response to Treatment: Improving Plan Cont POC Patient will be seen: Daily Sunday-Sunday Discharge Recommendations: NH placement (pt reports she is moving to [facility] after her hospital stay) Coding Time In: 1000 Time Out: 1020 Total Minutes: 20 Codes/Units: 95884 Exercise Therp CAMERON Mcallister [employer]IVET TAPPING MACHINE OPERATOR Apr 21, 2016 10:27
--- NOTE | 2016-04-21 15:31 | PT Daily Note Inpatient (E) ---
PT Daily Treatment Service Date/Time 04/21/16, 15:22 Medical Diagnosis: (1) COPD with acute exacerbation ICD Code: J44.1 (2) Gait disturbance ICD Code: R26.9 (3) Weakness ICD Code: R53.1 (4) SIRS (systemic inflammatory response syndrome) ICD Code: R65.10 Physical Therapy: (1) Activity intolerance ICD Code: R68.89 (2) Gait disturbance ICD Code: R26.9 (3) Weakness ICD Code: R53.1 Precaution/Isolation: Standard Precautions Resuscitation Status: Do Not Resuscitate Fall Level: Low Risk 25-50 Subjective Pt sitting up in recliner and ready to exercise. Pt motivated and wanting to go home. Oxygen Delivery: Nasal cannula (Has home oxygen) O2 liters/minute: 3 Treatments Sit, Stand, Supine: Sitting, Long Sitting Extremity: Both Lower Extremity Assistance: AROM Repetition: Other (1 x 25) Exercise: AP, QS, Heel Slides, Hip Abduction, SLR, LAQ, Hip Flexion Transfers Sit-Stand from bed: Contact Guard Assist (from recliner.) Stand-Sit: Contact Guard Assist Gait Ambulation: Contact Guard Assist Distance Walked: 120 feet, 30 feet. Assistive Device: FWW Gait Description: Decreased Meseret, Slow, Short Step Length, Flexed Trunk Gait Training: Limitations: SOB (mild SOA on 3 liters of O2.), Fatigue Education/Plan Assessment Pt very motivated to get back home. Plan Patient will be seen: Daily Sunday-Sunday Discharge Recommendations: NH placement (pt reports she is moving to [facility] after her hospital stay) Coding Time In: 14:59 Time Out: 15:29 Total Minutes: 30 Codes/Units: 18519 Exercise Therp 15 m (30 min) Ray Coburn [employer] PSYCHOLOGIST Apr 21, 2016 15:31
[2016-04-21 15:46] VITALS: BP 118/61
--- NOTE | 2016-04-21 15:58 | NUR ---
Visited with Pt. daughter Evon and got clarification of where Pt. resides and what their plans where for discharge. Evon reported Pt. lives at [facility] in [place] and they plan for her to go back there upon discharge. Informed her Pt. would likely be discharged next Sunday or Sunday. Evon had further questions and Dr. Saenz was available to discuss Pt. care with her. Dr. Saenz did discuss hospice with Evon and EDUARDA provided Evon with contact information for [facility] and [facility] [place]. EDUARDA will update Evon on Sunday regarding her mother's discharge plans.
[2016-04-21] MEDS: warFARin 1 MG (COUMADIN) TAB PO SCH (17:19)
--- NOTE | 2016-04-21 17:28 | Progress Note (E) ---
Progress Note Subjective: Patient is up to chair. She is doing a breathing treatment during my visit. Discussed findings today. Questions answered. Patient verbalized understanding. Objective: Current Medications Lorazepam 0.5 mg Q4H PRN PO Duloxetine 30 mg BID PO Clonazepam 1.5 mg BID PO Warfarin 1 mg DAILY@1700 PO Tramadol 50 mg Q6H PRN PO Acetaminophen 650 mg Q6H PRN PO Guaifenesin 1,200 mg BID PO Budesonide 0.5 mg BID INH Docusate 100 mg BID PRN PO Simvastatin 40 mg HS PO Ondansetron 4 mg Q6H PRN PO Polyethylene Glycol 17 gm DAILY PRN PO Albuterol/ Ipratropium 3 ml RTQID INH Albuterol Sulfate 0.083% Neb Solution 2.5 mg Q2H PRN INH Cyanocobalamin 1,000 mcg DAILY PO Magnesium Hydroxide 30 ml DAILY PRN PO Morphine 2 mg Q3H PRN IV Mirtazapine 15 mg HS PO Al Hydrox/Mg Hydrox/Simethicone 30 ml Q6H PRN PO Calcium Carbonate 300 mg Q8H PRN PO Cholecalciferol 2,000 unit DAILY PO Doxycycline 100 mg DAILY@,19 PO Prednisone 30 mg DAILY@0800 PO Last administered on 04/21/16t 08:21; Admin Dose 30 MG; Start 04/21/16 at 08:00; Stop 04/22/16 at 08:01 Prednisone 20 mg DAILY@0800 PO; Start 04/23/16 at 08:00; Stop 04/24/16 at 08:01 Prednisone 10 mg DAILY@0800 PO; Start 04/25/16 at 08:00; Stop 04/26/16 at 08:01 I & O Past 24 hrs 04/21/16 07:00 Intake Total 564 ml Output Total 1250 ml Balance -686 ml Intake Oral 564 ml Output Urine Total 1250 ml # Bowel Movements 1 Vital Signs Date Time Temp Pulse Resp B/P Pulse Ox O2 Delivery O2 Flow Rate FiO2 04/21/16 15:46 96.4 101 20 118/61 94 Nasal cannula 3.00 Physical Exam General--Awake and alert. No distress. HEENT--Normocephalic. MMM in oral cavity. Nasal cannula in place. Lungs--Clear bilaterally. NLR's. Heart--Regular rate. Rhythm normal. Abdomen--Normal bowel sounds. Soft. Nondistended. Nontender. Extremities--No edema to bilateral lower extremities. Microbiology 04/08/16 Blood Culture - Final, Complete No Growth in 5 days 04/09/16 Gram Stain - Final, Complete 04/09/16 Sputum Culture - Final, Complete Imaging Results 04.08.16 CXR IMPRESSION: 1. Stable changes of COPD. 04.09.16 CXR Impression: Stable chronic findings of COPD. No new or acute abnormality is seen when compared to the prior study. 04.10.16 CXR IMPRESSION: Cardiomegaly with increasing pulmonary venous congestion and interstitial changes suggestive of developing mild failure/edema. Increased density left lung base may be secondary to a small effusion or to some underlying atelectasis or infiltrate. 04.16.16 CXR Impression: Postsurgical changes in the chest with small left pleural effusion. Assessment/Plan Deconditioning Continue daily PT/OT. Acute Respiratory Failure/Distress Continue to wean oxygen protocol. Treated underlying problems. Patient becomes dyspneic with weaning, however, sats are maintaining. Will continue to attempt to wean. Sepsis Resolved. Met with tachycardia and tachypnea. Treated HCAP. COPD Duoneb scheduled and albuterol PRN. Holding arformoterol subbing budesonide for beclomethasone. Currently on prednisone taper from previous exacerbation. HCAP Treated with abx. Blood and sputum cultures negative. Dyspnea Improving. VS's are normal. Worsened with anxiety. Continue ativan. 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 Sodium normalized. Anxiety Improving, although, the patient requires a lot of reassurance. Recent mental health hospitalization. Holding duloxetine due to hyponatremia. Clonazepam scheduled, lorazepam PRN. Olanzapine. Follows with mental health in [place]. Breast cancer s/p right radical mastectomy 11/17 Getting cancer care through [facility] (Dr. Driver.) S/P 2 rounds of chemo but she plans to stop. Mechanical Aortic Valve Warfarin with goal INR 2.5-3.5. INR 1.8 on 04.19.16, will recheck today. Constipation Bowel regimen. HTN Metoprolol. Holding HCTZ due to hyponatremia. HLD Simvastatin. Depression Continue duloxetine and mirtazapine. B12 Deficiency Continue supplementation. Vitamin D Deficiency Continue supplementation. FEN IVF's on admission, none currently. I&O, daily weight. General diet as tolerated. Electrolytes above. DVT prophylaxis Warfarin, INR pending. Code Status DNR Dispo Inpatient. Patient continues to improve slowly. Continue current cares. Continue to wean oxygen. Continue PT. Long discussion with daughter Evon, regarding d/c plans to skilled. Also briefly discussed future hospice options. ADAM CLARK MD Apr 21, 2016 17:28
--- NOTE | 2016-04-21 18:37 | NUR ---
Pt. has been sitting up in chair this afternoon. She has ambulated with PT. This evening she is tearful and anxious about not getting to go home as early as she wanted to to be with family. She is very homesick and lonely for her family. Allowed pt. to discuss her emotions and anxieties. Encouraged positive outlooks.
[2016-04-21] MEDS: MIRTAZAPINE 15 MG (REMERON) TABLET PO SCH (20:26)
[2016-04-21] MEDS: SIMvastatin 40 MG (ZOCOR) TAB PO SCH (20:26)
--- NOTE | 2016-04-22 04:52 | NUR ---
Pt is resting in bed asleep, has not complained of pain or discomfort during this shift. SL is patent, no redness, swelling, or s/s of infection noted at this time. Call light is in reach, will continue to monitor.
[2016-04-22] MEDS: DOXYCYCLINE 100 MG (VIBRAMYCIN) TABLET PO SCH ×2 (05:58→18:18)
[2016-04-22] MEDS: ALBUTEROL/IPRATROPIUM 3MG-0.5MG/3ML (DUONEB) NEB VIAL INH SCH ×4 (07:11→19:00)
[2016-04-22] MEDS: BUDESONIDE NEBS 0.5 MG/2ML (PULMICORT) AMP INH SCH ×2 (07:15→19:03)
--- NOTE | 2016-04-22 07:16 | NUR ---
Pt is awake and alert, sitting up in bed, tolerated tx well. On 2L NC SPO2 93%. Pt appears comfortable and in no distress.
[2016-04-22 08:04] VITALS: BP 149/69
[2016-04-22] MEDS: meTOprolol TARTRATE 50 MG (LOPRESSOR) TABLET PO SCH ×2 (08:05→18:18)
[2016-04-22] MEDS: predniSONE 10 MG (DELTASONE) TABLET PO SCH (08:05)
[2016-04-22] MEDS: guaiFENesin ER 600 MG (MUCINEX) TAB PO SCH ×2 (09:24→21:29)
[2016-04-22] MEDS: CYANOCOBALAMIN 1000 MCG (VITAMIN B-12) TABLET PO SCH (09:24)
[2016-04-22] MEDS: CHOLECALCIFEROL 1000 INT UNITS (VITAMIN D3) TABLET PO SCH (09:24)
[2016-04-22] MEDS: DULoxetine 30 MG (CYMBALTA) CAPSULE PO SCH ×2 (09:24→21:29)
[2016-04-22] MEDS: clonazePAM 0.5 MG (KlonoPIN) TAB PO SCH ×2 (09:24→21:29)
[2016-04-22] MEDS: WARFARIN MONITORING XX SCH (09:25)
[2016-04-22] MEDS: POLYETHYLENE GLYCOL 17 GM (MIRALAX) PACKET PO PRN (09:38)
--- NOTE | 2016-04-22 12:32 | PT Daily Note Inpatient (E) ---
PT Daily Treatment Service Date/Time 04/22/16, 10:27 Medical Diagnosis: (1) COPD with acute exacerbation ICD Code: J44.1 (2) Gait disturbance ICD Code: R26.9 (3) Weakness ICD Code: R53.1 (4) SIRS (systemic inflammatory response syndrome) ICD Code: R65.10 Physical Therapy: (1) Activity intolerance ICD Code: R68.89 (2) Gait disturbance ICD Code: R26.9 (3) Weakness ICD Code: R53.1 Precaution/Isolation: Standard Precautions Resuscitation Status: Do Not Resuscitate Fall Level: Low Risk 25-50 Subjective Pt states she is down today because she thought she would go home this weekend. She has already performed some seated exercise this AM on her own. Pain Level: 0 Oxygen Delivery: Nasal cannula O2 liters/minute: 2L Treatments Sit, Stand, Supine: Sitting, Standing Extremity: Both Lower Extremity Assistance: AROM Comment 1 X 25 Resistance: Manual (gait belt with hip extension seated) Exercise: AP, Hip Abduction, Hip Adduction, LAQ, Hip Flexion, Hip Extension, TR , HR Transfers Rolling: Not Assessed/NA Sit-Supine: Not Assessed/NA Sitting Edge of Bed: Not Assessed/NA Supine-Sit: Not Assessed/NA Sit-Stand from bed: Contact Guard Assist Stand-Sit: Contact Guard Assist Pivot Transfers: Not Assessed/NA Gait Ambulation: Contact Guard Assist Distance Walked: 2 x 40 feet SOA with ambulation- required verbal cues in order to breath through nose. Weight Bearing Status: Full Assistive Device: FWW Gait Assist: Min Assist/Contact Guard Gait Description: Decreased Meseret, Slow, Short Step Length Gait Training: Limitations: SOB, Fatigue, Decreased Strength Stairs not attempted Education/Plan Education Education Needs: Breathing Technique Assessment Pt motivated to get better and has already performed most of her seated exercises this AM prior to PT arrival. She states she performed 25 reps of each and was able to demonstrate technique correctly. Balance activities challenging for patient. Safety Awareness: Intact Response to Treatment: Improving Plan Add standing and balance activities as tolerated. Patient will be seen: Daily Sunday-Sunday Discharge Recommendations: NH placement (pt reports she is moving to [facility] after her hospital stay) Coding Time In: 10:27 Time Out: 10:57 Total Minutes: 30 Codes/Units: 08263 Exercise Therp 15 m, 37908 Gait Training 15 mi Martine Palmer PT Apr 22, 2016 12:32
--- NOTE | 2016-04-22 14:15 | NUR ---
Amb from room to shower across corona x 2 with walker and 1 assist. Michelle well.
[2016-04-22] MEDS: DOCUSATE SODIUM 100 MG (COLACE) CAP PO PRN (14:20)
--- NOTE | 2016-04-22 15:12 | NUR ---
Pt is awake and alert, sitting in recliner, tolerated tx well, on 2L NC-SPO2 92%
[2016-04-22] MEDS: warFARin 1 MG (COUMADIN) TAB PO SCH (17:27)
[2016-04-22 21:00] VITALS: BP 134/64
[2016-04-22] MEDS: MIRTAZAPINE 15 MG (REMERON) TABLET PO SCH (21:30)
[2016-04-22] MEDS: SIMvastatin 40 MG (ZOCOR) TAB PO SCH (21:30)
[2016-04-23 08:20] VITALS: BP 136/69
[2016-04-23] MEDS: meTOprolol TARTRATE 50 MG (LOPRESSOR) TABLET PO SCH ×2 (08:32→18:09)
[2016-04-23] MEDS: predniSONE 20 MG (DELTASONE) TABLET PO SCH (08:32)
[2016-04-23] MEDS: guaiFENesin ER 600 MG (MUCINEX) TAB PO SCH ×2 (08:32→20:46)
[2016-04-23] MEDS: clonazePAM 0.5 MG (KlonoPIN) TAB PO SCH ×2 (08:33→20:46)
[2016-04-23] MEDS: CHOLECALCIFEROL 1000 INT UNITS (VITAMIN D3) TABLET PO SCH (08:33)
[2016-04-23] MEDS: CYANOCOBALAMIN 1000 MCG (VITAMIN B-12) TABLET PO SCH (08:33)
[2016-04-23] MEDS: WARFARIN MONITORING XX SCH (08:33)
[2016-04-23] MEDS: DULoxetine 30 MG (CYMBALTA) CAPSULE PO SCH ×2 (08:33→20:46)
[2016-04-23] MEDS: BUDESONIDE NEBS 0.5 MG/2ML (PULMICORT) AMP INH SCH ×2 (09:05→19:20)
[2016-04-23] MEDS: ALBUTEROL/IPRATROPIUM 3MG-0.5MG/3ML (DUONEB) NEB VIAL INH SCH ×4 (09:05→19:20)
--- NOTE | 2016-04-23 09:15 | NUR ---
Pt sitting upright in chair, takes AM meds whole in applesauce without difficulty. Remains on Fluid Rest. Will cont to monitor patient. Leslie HUERTAS has been in room for scheduled treatment.
--- NOTE | 2016-04-23 11:29 | NUR ---
Pt to shower
[2016-04-23] MEDS: warFARin 1 MG (COUMADIN) TAB PO SCH (18:09)
--- NOTE | 2016-04-23 19:23 | NUR ---
Pt found sitting in her chair on 2 l/min NC, SPO2 94%, HR 105, RR 18 and non labored with clear and diminished BS before and after Duoneb/Pulmicort via SVN/MASK. Pt is using Acapella post Tx on her own.
[2016-04-23 19:46] VITALS: BP 115/62
[2016-04-23] MEDS: MIRTAZAPINE 15 MG (REMERON) TABLET PO SCH (20:46)
[2016-04-23] MEDS: SIMvastatin 40 MG (ZOCOR) TAB PO SCH (20:47)
--- NOTE | 2016-04-23 20:49 | NUR ---
Pt up in chair. Medications administered whole in applesauce. Pt took meds without difficulty. Pt states she's a bit depressed today because her daughter wasn't able to visit due to illness. Cooperative with cares and assessment. Denies other needs. Call light in reach. Instructed pt to call when she was ready to go to bed.
--- NOTE | 2016-04-24 00:10 | NUR ---
Pt resting quietly. No needs at this time. Call light in reach.
[2016-04-24 06:18] LABS: BASOPHILS % (AUTO) 0 % (0-2); EOSINOPHILS # (AUTO) 0.1 10^3uL; EOSINOPHILS % (AUTO) 1 % (0-4); LYMPHOCYTES # (AUTO) 1.5 X10^3; MEAN CORPUSCULAR VOLUME 81 FL (80-100); MEAN PLATELET VOLUME 10.8 FL (6.0-9.5); MONOCYTES # (AUTO) 0.8 X10^3; MONOCYTES % (AUTO) 8 % (3-11); NEUTROPHILS # (AUTO) 7.9 X10^3; NEUTROPHILS % (AUTO) 76 % (51-67); PLATELET COUNT 311 10^3uL (150-450); WHITE BLOOD COUNT 10.39 10^3uL (4.0-11.0)
[2016-04-24 06:19] LABS: MEAN CORPUSCULAR HEMOGLOBIN 25.4 PG (26.0-34.0); MEAN CORPUSCULAR HGB CONC 31.3 g/dL (31.0-37.0)
[2016-04-24 06:58] LABS: ALBUMIN 3.4 g/dL (3.4-5.0); ANION GAP 9.5 MEQ/L (3-15); PHOSPHORUS 4.4 mg/dL (2.4-4.9)
[2016-04-24] MEDS: BUDESONIDE NEBS 0.5 MG/2ML (PULMICORT) AMP INH SCH (07:32)
[2016-04-24] MEDS: ALBUTEROL/IPRATROPIUM 3MG-0.5MG/3ML (DUONEB) NEB VIAL INH SCH ×2 (07:32→11:39)
[2016-04-24 08:00] VITALS: BP 141/69
[2016-04-24] MEDS: DULoxetine 30 MG (CYMBALTA) CAPSULE PO SCH (08:42)
[2016-04-24] MEDS: DOCUSATE SODIUM 100 MG (COLACE) CAP PO PRN (08:42)
[2016-04-24] MEDS: CYANOCOBALAMIN 1000 MCG (VITAMIN B-12) TABLET PO SCH (08:42)
[2016-04-24] MEDS: meTOprolol TARTRATE 50 MG (LOPRESSOR) TABLET PO SCH (08:42)
[2016-04-24] MEDS: clonazePAM 0.5 MG (KlonoPIN) TAB PO SCH (08:42)
[2016-04-24] MEDS: predniSONE 20 MG (DELTASONE) TABLET PO SCH (08:42)
[2016-04-24] MEDS: WARFARIN MONITORING XX SCH (08:42)
[2016-04-24] MEDS: guaiFENesin ER 600 MG (MUCINEX) TAB PO SCH (08:42)
[2016-04-24] MEDS: CHOLECALCIFEROL 1000 INT UNITS (VITAMIN D3) TABLET PO SCH (08:42)
--- NOTE | 2016-04-24 09:00 | NUR ---
Pt sitting upright in chair- Remains on 2L nc. No c/o at this time. AM meds given whole in applesauce without difficulty. Expresses that she is "nervous to go home or to stay." Pt then states "Oh I'll be ok."
--- NOTE | 2016-04-24 09:49 | NUR ---
22g IV dc'd from Lt wrist at this time. Tip intact, site without redness/swelling.
[2016-04-24] MEDS ORDERED: PRD10T PO (10:50)
[2016-04-24] MEDS ORDERED: CLON0.5T3 PO (10:50)
[2016-04-24] MEDS ORDERED: LORA0.5T PO (10:50)
[2016-04-24] MEDS ORDERED: DOCU100C8 PO (10:50)
[2016-04-24] MEDS ORDERED: WRF1T PO (10:50)
[2016-04-24] MEDS ORDERED: CALC300T10 PO (10:50)
[2016-04-24] MEDS ORDERED: TRM50T PO (10:50)
[2016-04-24] MEDS ORDERED: IPRA0.2S18 INH (10:50)
[2016-04-24] MEDS ORDERED: GFN600TCR PO (10:50)
[2016-04-24] MEDS ORDERED: MAG30ORA PO (10:50)
[2016-04-24] MEDS ORDERED: MAGN400O7 PO (10:50)
[2016-04-24] MEDS ORDERED: ALBU2.5V12 INH (10:50)
--- NOTE | 2016-04-24 10:51 | Discharge Instructions (E) ---
Discharge Instructions Instructions * You were admitted for rehab in [facility] after hospitalization 04/08- for COPD exacerbation and pneumonia. You improved but will benefit from further rehab in skilled care and you are being discharged to continue your recover at [facility]. Activity Instructions As tolerated. Doctor's Appointment Follow-up with your primary care doctor in 3-5 days. Discharge Diet: ANGIE Hartman MD Apr 24, 2016 10:38
--- NOTE | 2016-04-24 11:01 | PT Daily Note Inpatient (E) ---
PT Daily Treatment Service Date/Time 04/24/16, 10:57 Medical Diagnosis: (1) COPD with acute exacerbation ICD Code: J44.1 (2) Gait disturbance ICD Code: R26.9 (3) Weakness ICD Code: R53.1 (4) SIRS (systemic inflammatory response syndrome) ICD Code: R65.10 Physical Therapy: (1) Activity intolerance ICD Code: R68.89 (2) Gait disturbance ICD Code: R26.9 (3) Weakness ICD Code: R53.1 Precaution/Isolation: Standard Precautions Resuscitation Status: Do Not Resuscitate Fall Level: Low Risk 25-50 Subjective pt in chair, feeling better, smiles when we talked about discharge back to [place], agrees to PT Pain Level: 0 Oxygen Delivery: Nasal cannula O2 liters/minute: 2 Treatments Sit, Stand, Supine: Long Sitting (& sitting) Assistance: AROM Repetition: 1 x 15 Exercise: AP, Heel Slides, Hip Abduction, SLR (x10 bilateral), LAQ, Hip Flexion , TR, HR Transfers Sit-Stand from bed: Supervision or setup (no cues for hand placement) Stand-Sit: Supervision or setup Gait Ambulation: Contact Guard Assist Distance Walked: 30' "I really don't wish to walk any further than this" Weight Bearing Status: Full Assistive Device: FWW Gait Assist: Min Assist/Contact Guard Gait Description: Normal:No Sig. Deviation, Safe w/ Assistive Device, Flexed Trunk Education/Plan Assessment Safe with transfers, endurance much improved, strength and balance WFL Safety Awareness: Intact Response to Treatment: Improving Plan d/c today to [facility] Patient will be seen: Daily Sunday-Sunday Discharge Recommendations: NH placement (pt reports she is moving to [facility] after her hospital stay) Coding Time In: 1045 Time Out: 1100 Total Minutes: 15 Charges: 42325 Exercise Therp CAMERON Mcallister PTA Apr 24, 2016 11:01
--- NOTE | 2016-04-24 11:05 | NUR ---
Pt. to discharge back to [facility] today for further skilled care. Transportation will be here around 12:00 to tow picker Pt. EDUARDA contacted Pt. daughter Evon and made her aware of Pt. discharge plans for today.
--- NOTE | 2016-04-24 11:07 | Discharge Summary (E) ---
Discharge Summary (E) Admit Date/Time Apr 18, 2016 at 14:09 Discharge Date/Time Apr 24, 2016 Admitting Provider Judson Lucia MD Primary Care Provider Sebastián Ramon MD Attending Provider Judson Lucia MD Consulting Provider History and Present Illness See History and Physical for complete details. Violeta Morris is a 89 year old female [facility] after acute hospitalization 04/08/16 - 04/18/2016 for respiratory failure attributed to COPD with acute exacerbation and HCAP. She had slow improvement during her long hospital stay and she was felt to benefit from further rehab in [place] [facility] care at this facility where she did improve with PT/OT and close medical supervision of her acute and chronic medical conditions. At the start of this skilled stay she had 14 days of skilled benefit available. With improvement, she was transferred back to [facility] in [place] for additional rehab in skilled care. Hospital Course and Treatment * Deconditioning: PT/OT eval and treat. Continue at [facility]. * Acute Respiratory Failure: Slowly resolving. Oxygen protocol. Treated underlying problems. * COPD with Acute Exacerbation: Slowly resolving. Exacerbation due to HCAP, URI. Resp PCR panel positive for coronavirus. Duoneb scheduled, albuterol PRN. Held arformoterol. Sub budesonide for beclomethasone. Methylprednisolone with transition to prednisone. Prednisone taper starting 04/19. Encourage use of PRN albuterol. At discharge, transitioned back to her home COPD regimen including arformoterol, beclomethasone, ipratropium, with albuterol PRN. * Anxiety: Reviewed records from recent mental health hospitalization. Restarted duloxetine 04/12 (had held due to hyponatremia.) Clonazepam scheduled , lorazepam PRN. Follows with mental health in [place]. * F/E/N: General diet as tolerated. I&O, daily weight. At discharge, weigh Q48H. * Prophylaxis: Warfarin * Code Status: DNR * Dispo: Transitioned to skilled care at [facility] 04/18 with 14 days of skilled care benefit left. Complete course of rehab at [facility] in [place]. RESOLVING ISSUES * SIRS/Sepsis: Resolving. Attributed to HCAP. * HCAP: Repeat CXR reassuring. Blood culture negative to date. Sputum grew normal jeni. Acapella. Pip-tazo, vanco empirically on admit, de-escalated to doxycycline 04/12. * Hyponatremia: Resolved. Na 126 on admit. Multifactorial... 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 Got NS in ED. Hold further IVF. Held duloxetine, HCTZ initially. Monitored Na trend. * Coagulopathy due to Warfarin: INR 2.6 on admit, yomi to 5.3 04/12. Still elevated. Possibly due to antibiotics. Restarted warfarin 04/17. Monitored INR trend. CHRONIC ISSUES * Breast cancer s/p right radical mastectomy 11/17: Getting cancer care through [facility] (Dr. Driver.) S/P 2 rounds of chemo but she plans to stop. * Mechanical Aortic Valve: Warfarin with goal INR 2.5-3.5. * Constipation: Bowel regimen. * HTN: Metoprolol. Hold HCTZ due to hyponatremia. * HLD: Simvastatin * Depression: Duloxetine on hold due to hyponatremia. Mirtazapine. * B12 Deficiency: Supplement. * Vitamin D Deficiency: Supplement. Discharge Physicial Exam General Vital Signs Date Time Temp Pulse Resp B/P Pulse Ox O2 Delivery O2 Flow Rate FiO2 04/24/16 08:00 97.5 82 18 141/69 93 Nasal cannula 04/21/16 15:46 3.00 Discharge weight: 58.9 kg GEN: Up to chair. Alert, interactive. NAD. HEENT: EOMI, pupils reactive and equal, clear sclerae. Somewhat dry oral mucosa. CV: RRR S1 S2 normal with no murmur LUNGS: Diminished throughout. No rales, rhonchi, or wheezes. ABD: Soft, NT/ND with normal bowel sounds. EXTR: Trace ankle edema. Warm, dry, well-perfused. INTEG: No rash. Pallor. NEURO: Psychomotor slowing. No apparent focal motor neuro weakness. Laboratory/Radiology Data Laboratory Results-14 Days 04/19/16 05:45: Prothromb Time International Ratio 1.8H, Prothrombin Time 19.8H 04/21/16 18:22: Prothromb Time International Ratio 2.7H, Prothrombin Time 29.4H 04/24/16 05:40: Prothromb Time International Ratio 2.4H, Prothrombin Time 26.8H, Albumin 3.4, Anion Gap 9.5, Basophils # (Auto) 0.0, Basophils (%) (Auto) 0, Blood Urea Nitrogen 14, C-Reactive Protein 1.80H, Calcium Level 8.4L, Carbon Dioxide Level 36H, Chloride Level 97L, Creatinine 0.88#, Eosinophils # (Auto) 0.1, Eosinophils (%) (Auto) 1, Estimat Glomerular Filtration Rate 73.4, Estimated GFR (Non- 60.6, Glucose Level 109, Hematocrit 30.40L, Hemoglobin 9.5L, Lymphocytes # (Auto) 1.5, Lymphocytes (%) (Auto) 14L, Mean Corpuscular Hemoglobin 25.4L, Mean Corpuscular Hemoglobin Concent 31.3, Mean Corpuscular Volume 81, Mean Platelet Volume 10.8H, Monocytes # (Auto) 0.8, Monocytes (%) (Auto) 8, Neutrophils # (Auto) 7.9, Neutrophils (%) (Auto) 76H, Phosphorus Level 4.4, Platelet Count 311, Potassium Level 4.0, Red Blood Count 3.74L, Red Cell Distribution Width 18.7H, Sodium Level 139, White Blood Count 10.39 See acute hospitalization D/C summary for reports from cultures, imaging. No new imaging was obtained during this hospitalization. Discharge Disposition Discharged to [facility] to continue rehab in skilled care. Instructions * You were admitted for rehab in [place] [facility] after hospitalization 04/08- for COPD exacerbation and pneumonia. You improved but will benefit from further rehab in skilled care and you are being discharged to continue your recover at [facility]. Activity Instructions As tolerated. Appointments Follow-up with your primary care doctor in 3-5 days. Discharge Diet: Regular Discharge Medications New Medications: Albuterol Sulfate (Proventil 0.083%) 2.5 Mg/3 Ml Nebu 2.5 MG INH Q4H PRN SHORTNESS OF BREATH #0 Ref 0 VIAL Calcium Carbonate (Tums) 300 Mg Tab.chew 300 MG PO Q8H PRN DYSPEPSIA #0 Ref 0 TAB.CHEW Docusate Sodium (Docusate Sodium) 100 Mg Capsule 100 MG PO BID PRN CONSTIPATION #0 Ref 0 CAP Guaifenesin (Mucinex) 600 Mg Tab 1200 MG PO BID Take for 5 more days, then stop. #0 Ref 0 TAB Mag Hydrox/Al Hydrox/Simeth (Mag-Al Plus -Simethicone [id number]/5ml) 30 Ml Oral.susp 30 ML PO Q6H PRN DYSPEPSIA #0 Ref 0 ML Magnesium Hydroxide (Milk of Magnesia 400mg/5ml) 400 Mg/5 Ml Oral.susp 30 ML PO DAILY PRN CONSTIPATION #0 Ref 0 ML Tramadol HCl (Tramadol HCl) 50 Mg Tablet 50 MG PO Q6H PRN PAIN #15 Ref 0 TAB Warfarin (Warfarin) 1 Mg Tablet 1 MG PO DAILY@1700 #0 Ref 0 TAB Changed Medications: Ipratropium [place] (Atrovent 0.5mg/2.5ml) 0.5 Mg/2.5 Ml Nebu 0.5 MG INH BID #0 Ref 0 VIAL (Changed from: QID; Refills: ) Lorazepam (Lorazepam) 0.5 Mg Tablet 0.5 MG PO Q6H PRN ANXIETY #15 Ref 0 TAB (Changed from: Q4H) Prednisone (Deltasone) 10 Mg Tab 10 MG PO DAILY Take for 2 more days (next dose 04/25) then STOP. #2 Ref 0 TAB ( Changed from: Refills: ) Continued Medications: Acetaminophen (Acetaminophen) 325 Mg Tablet 325 MG PO Q4H PRN PAIN Ref 0 TAB Albuterol Sulfate (Ventolin HFA) 8 Gm Hfa.aer.ad 2 PUFF INH Q4H PRN DYSPNEA INHALER Arformoterol Tartrate (Brovana) 15 Mcg/2 Ml Nebu 15 MCG IH BID VIAL Beclomethasone Dipropionate (Qvar) 7.3 Gm Aer.w.adap 80 MCG IH BID@0800,1800 INH Cholecalciferol (Vitamin D3) (Vitamin D-3) 2,000 Unit Capsule 2000 UNIT PO DAILY Vitamin/Mineral Supplemnt Ref 0 CAP Clonazepam (Klonopin) 0.5 Mg Tab 1.5 MG PO BID #60 Ref 0 TAB (This prescription has been renewed) Cyanocobalamin (Vitamin B-12) (B-12) 1,000 Mcg Tablet 1000 MCG PO DAILY TAB Duloxetine HCl (Cymbalta) 30 Mg Capsule.dr 30 MG PO BID Metoprolol Tartrate (Metoprolol Tartrate) 50 Mg Tablet 50 MG PO BID WITH MEALS Ref 0 TAB Mirtazapine (Remeron) 15 Mg Tablet 15 MG PO HS TAB Multivits,Th W-Fe,Other Min (Therems-M) 1 Each Tablet 1 TAB PO DAILY TAB Polyethylene Glycol 3350 (Miralax) 17 Gm Powd.pack 17 GM PO EVERY OTHER DAY Constipation Ref 0 PKT Sennosides (Senna) 8.6 Mg Tablet 8.6 MG PO DAILY TAB Simvastatin (Simvastatin) 40 Mg Tablet 40 MG PO HS Discontinued Medications: Warfarin Sodium (Warfarin Sodium) 2 Mg Tablet 2 MG PO DAILY@1700 TAB Follow up New Orders: CXR (CHEST PA/LAT (2 VIEW)* - Within 2 weeks PROTIME WITH INR - 04/27/16 RENAL PROFILE - 05/01/16 Discharge Diagnosis See list above. Problems: Copies to: End of Report . JUDSON LUCIA MD Apr 24, 2016 11:07
--- NOTE | 2016-04-24 11:20 | NUR ---
Report called to Vonnie Mason RN at [facility] [place]. Questions answered. Awaiting [place] transportation to arrive around noon.
--- NOTE | 2016-04-24 12:10 | NUR ---
Pt dismissed to [facility] via w/c accompanied by [facility] Transportation at this time. Belongings with patient.
[2016-04-25] MEDS ORDERED: predniSONE 10 MG (DELTASONE) TABLET PO SCH (08:00)
[2016-05-07] MEDS ORDERED: HYDR1POW18 MC (14:28)
[2016-05-07] MEDS ORDERED: WARF2TAB6 PO (14:28)
[2016-05-07] MEDS ORDERED: IPRA3AMP11 INH (14:36)
[2016-05-07] MEDS ORDERED: IPRA0.2S18 INH (14:36)
[2016-05-07] MEDS ORDERED: ARFO15VI IH (14:36)
--- NOTE | 2016-05-15 14:42 | OT Therapy Evaluation (E) ---
Discharge Summary Service Date/Time 05/15/16, 14:35 Primary Diagnosis: (1) COPD with acute exacerbation ICD Code: J44.1 (2) Gait disturbance ICD Code: R26.9 (3) Weakness ICD Code: R53.1 (4) SIRS (systemic inflammatory response syndrome) ICD Code: R65.10 Treatment Diagnosis: (1) Weakness ICD Code: R53.1 Onset Date: 04/08/16 Start of Care Date: Apr 20, 2016 Summary of Discharge Therapy Comments Pt was seen for one occupational therapy session following initial evaluation. Pt educated on energy conservation techniques and diaphragmatic breathing to ease shortness of breath. Pt transitioned to another facility for skilled services. Short Term Goals/Status Will Perform Grooming: With Setup/SBA (GOAL MET.) Will Dress Upper Extremity: With Setup/SBA (PROGRESS. Minimal assistance. ) Will do Toileting: With Setup/SBA (NOT ASSESSED. ) Will Perform Functional Transf: With Setup/SBA (GOAL MET.) STG #1 Pt will participate in 15 min of ther-ex with use of energy conservation techniques as needed. NOT MET. 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 PROGRESS. Prompting required for diaphragmatic breathing. Discharge Recommendations: [facility] SONIA BARRAZA OT May 15, 2016 14:42
--- NOTE | 2016-06-06 14:06 | Physical Therapy Evaluation(E) ---
Discharge Summary Service Date/Time 06/06/16, 14:01 Primary Diagnosis: (1) COPD with acute exacerbation ICD Code: J44.1 (2) Gait disturbance ICD Code: R26.9 (3) Weakness ICD Code: R53.1 (4) SIRS (systemic inflammatory response syndrome) ICD Code: R65.10 Treatment Diagnosis: (1) Activity intolerance ICD Code: R68.89 (2) Gait disturbance ICD Code: R26.9 (3) Weakness ICD Code: R53.1 Onset Date: 04/04/2016 Start of Service Date: Apr 19, 2016 Summary of Progress Summary Comment The patient was treatment from 04/19-04/24/2016 to address weakness, impaired activity tolerance and impaired gait. She transfers sit to stand with supervision, ambulates regularly approximately 40 feet but has ambulated on one occasion up to 120 feet with use of FWW on . The patient was discharged from the hospital to [facility] where she was to continue her rehabilitation. Distance Walked in Feet 40 feet regularly, but has ambulated up to 120 feet on one occasion. Assistive Device: FWW Assist: Min Assist/Contact Guard Gait Description: Normal:No Sig. Deviation, Safe w/ Assistive Device, Flexed Trunk Gait Limitations: SOB, Fatigue, Decreased Strength Transfer STG and Status Rolling: Supervision or setup Goal Status at Discharge: Goal Met Sit-Supine: Supervision or setup Goal Status at Discharge: Goal Met Sitting Edge of Bed: Supervision or setup Goal Status at Discharge: Goal Met Supine-Sit: Supervision or setup Sit-Stand from bed: Contact Guard Assist Goal Status at Discharge: Goal Met Stand-Sit: Contact Guard Assist Goal Status at Discharge: Goal Met Ambulation: Contact Guard Assist Goal Status at Discharge: Goal Partially Met Transfer LTG and Status Rolling: Supervision or setup Goal Status at Discharge: Goal Met Sit-Supine: Supervision or setup Goal Status at Discharge: Goal Met Sitting Edge of Bed: Supervision or setup Goal Status at Discharge: Goal Met Supine-Sit: Supervision or setup Goal Status at Discharge: Goal Met Sit-Stand from bed: Supervision or setup Goal Status at Discharge: Goal Met Stand-Sit: Supervision or setup Goal Status at Discharge: Goal Met Ambulation: Supervision or setup Goal Status at Discharge: Goal Partially Met (patient requires CGA for ambulation using FWW. ) Plan of Care Goals and Status STG: Plan-Treatment Functional: Trans. Safe w/ AD Discharge Recommendations: NH placement (pt reports she is moving to [place] [facility] after her hospital stay) Service Recommendations: Continue Service (The patient is demonstrating improved funcitonal mobility but would benefit from additional therapy services. ) JIMBO PARRY PT Jun 06, 2016 14:06
== END 2016-04-24 12:10 | DRG 189 ==
LOC: MED/SURG 14:09
PROVIDERS: ADMIT Internal Medicine; ATTEND Internal Medicine
DX: J96.00 Acute respiratory failure, unspecified whether with hypoxia or hypercapnia (principal); J18.9 Pneumonia, unspecified organism; J44.0 Chronic obstructive pulmonary disease with (acute) lower respiratory infection; J44.1 Chronic obstructive pulmonary disease with (acute) exacerbation; Z66 Do not resuscitate; F41.9 Anxiety disorder, unspecified; R79.1 Abnormal coagulation profile; C50.911 Malignant neoplasm of unspecified site of right female breast; I10 Essential (primary) hypertension; Z95.2 Presence of prosthetic heart valve; Z79.01 Long term (current) use of anticoagulants
CPT/HCPCS: 36415; 80069; 85025; 85610; 86140; 94640; 94669; 94760

== ENCOUNTER 2016-05-07 09:02 | Inpatient (IN) | payer MEDICARE ==
[2016-05-07] VITALS (13 sets, daily range): BP systolic 103–152; BP diastolic 49–78
[~2016-05-07] VITALS: Ht 157.5 cm; Wt 62.8 kg
[2016-05-07] MEDS ORDERED: LORazepam 2 MG/ML (ATIVAN) 1 ML VIAL IV ONE (09:05)
[2016-05-07] MEDS ORDERED: NS IV 500 ML 500 ML IV SCH (09:05)
[2016-05-07] MEDS ORDERED: SODIUM CHLORIDE FLUSH 10 ML SYR IV PRN (09:05)
[2016-05-07] MEDS ORDERED: SODIUM CHLORIDE FLUSH 3 ML SYR IV ONE (09:05)
[2016-05-07 09:15] LABS: BASOPHILS % (AUTO) 0 % (0-2); EOSINOPHILS # (AUTO) 0.4 10^3uL; EOSINOPHILS % (AUTO) 5 % (0-4); LYMPHOCYTES # (AUTO) 0.5 X10^3; MEAN CORPUSCULAR HGB CONC 33.7 g/dL (31.0-37.0); MEAN PLATELET VOLUME 9.8 FL (6.0-9.5); MONOCYTES # (AUTO) 0.5 X10^3; MONOCYTES % (AUTO) 6 % (3-11); NEUTROPHILS # (AUTO) 6.6 X10^3; NEUTROPHILS % (AUTO) 81 % (51-67); PLATELET COUNT 252 10^3uL (150-450); WHITE BLOOD COUNT 8.08 10^3uL (4.0-11.0)
[2016-05-07 09:28] LABS: MEAN CORPUSCULAR HEMOGLOBIN 25.8 PG (26.0-34.0); MEAN CORPUSCULAR VOLUME 77 FL (80-100)
[2016-05-07 09:32] LABS: ALBUMIN 3.2 g/dL (3.4-5.0); ALKALINE PHOSPHATASE 91 U/L (38-126); BUN/CREATININE RATIO 16 (10-20); CALCULATED IONIZED CALCIUM 3.7 mg/dL (3.8-4.6); TOTAL PROTEIN 6.9 g/dL (6.4-8.5)
[2016-05-07 09:46] LABS: CREATINE KINASE < 20 U/L (30-135)
[2016-05-07 09:52] LABS: BILIRUBIN,URINE Negative (Negative); CLARITY,URINE Clear; COLOR,URINE Yellow; GLUCOSE, URINE (UA) Negative (Negative); LEUKOCYTE ESTERASE ,URINE 3+ (Negative); UROBILINOGEN,URINE 0.2 mg/dL (0.2-1.0)
[2016-05-07 10:11] LABS: URINE CENTRIFUGED VOLUME 10 mL
--- NOTE | 2016-05-07 10:20 | NUR ---
notified dr blank of patient critical sodium level of 117 and potassium of 2.2.
[2016-05-07] MEDS ORDERED: POTASSIUM CL IVPB 50 ML IV ONE ×2 (11:00→11:55)
[2016-05-07] MEDS ORDERED: POTASSIUM CHLORIDE ER 20 MEQ TABLET PO ONE ×3 (11:00→17:10)
[2016-05-07] MEDS ORDERED: ONDANSETRON 2 MG/ML (Z0FRAN) 2 ML VIAL IV ONE (11:00)
--- NOTE | 2016-05-07 11:12 | NUR ---
report to eros at [facility]
[2016-05-07] MEDS ORDERED: LIDOCAINE PF 1% (XYLOCAINE) 2 ML VIAL INJ ONE ×2 (12:00→12:15)
[2016-05-07] MEDS ORDERED: POTASSIUM CHLORIDE ER 10 MEQ CAPSULE PO ONE ×2 (12:00→12:20)
[2016-05-07] MEDS ORDERED: METOCLOPRAMIDE 10 MG/2 ML (REGLAN) VIAL IV PRN (12:40)
--- NOTE | 2016-05-07 12:50 | NUR ---
Pt. admitted to [facility] from ED at 1119, arrived via cart accompanied by ED RN and family. Pt. is alert and oriented, though she is forgetful of some of her history. She denies having burning or pain with urination, but does understand that she is weaker than usual and has low potassium and sodium. She is quite anxious about her sodium and potassium. Pt. denies pain at this time. See admission assessment.
--- NOTE | 2016-05-07 13:00 | NUR ---
Ashley is found up in bed with IV fluids and potassium infusing into LAC. She has no complaints. Skin is clean and dry and respirations are even and unlabored. Monitors in place and heart rate in the 130s at Afib.
[2016-05-07] MEDS ORDERED: NS FLUSH 10 ML PRN IV (13:10)
[2016-05-07] MEDS ORDERED: NS FLUSH 3 ML PRN IV (13:10)
[2016-05-07] MEDS: cefTRIAXone SODIUM 1,000 MG in SODIUM CHLORIDE 50 ML IV SCH (13:21)
[2016-05-07] MEDS ORDERED: POLYETHYLENE GLYCOL 17 GM (MIRALAX) PACKET PO PRN (13:25)
[2016-05-07] MEDS ORDERED: LORazepam 0.5 MG (ATIVAN) TABLET PO PRN (13:25)
[2016-05-07] MEDS ORDERED: MAG HYDROX/AL HYDROX/SIMETH 200-200-20/5 ML (MAG-AL PLUS) 30 ML UDC PO PRN (13:25)
[2016-05-07] MEDS ORDERED: CALCIUM CARBONATE CHEWABLE 300 MG (TUMS) TABLET PO PRN (13:25)
[2016-05-07] MEDS ORDERED: DOCUSATE SODIUM 100 MG (COLACE) CAP PO PRN (13:25)
[2016-05-07] MEDS ORDERED: ACETAMINOPHEN 325 MG TAB (TYLENOL) PO PRN (13:25)
[2016-05-07] MEDS: DILTIAZEM IV FOR DRIP 125 MG in SODIUM CHLORIDE 100 ML IV PRN ×2 (13:50→22:10)
--- NOTE | 2016-05-07 14:37 | NUR ---
Med Rec completed via MAR from [facility].
[2016-05-07] MEDS: ALBUTEROL 0.083% NEB SOLUTION 2.5 MG/3 ML VIAL INH PRN (14:40)
[2016-05-07] MEDS ORDERED: warFARin 1 MG (COUMADIN) TAB PO SCH (17:00)
[2016-05-07 17:01] LABS: ANION GAP 12.4 MEQ/L (3-15)
[2016-05-07] MEDS: warFARin 2 MG (COUMADIN) TAB PO SCH (17:59)
[2016-05-07] MEDS ORDERED: BECLOMETHASONE DIPROPIONATE 80 MCG IH SCH (18:00)
[2016-05-07] MEDS ORDERED: IPRATROPIUM 0.02% NEB SOLN 0.5 MG/2.5 ML (ATROVENT) INH ONE (18:51)
[2016-05-07] MEDS ORDERED: BUDESONIDE NEBS 0.5 MG/2ML (PULMICORT) AMP INH ONE (18:51)
[2016-05-07] MEDS: IPRATROPIUM 0.02% NEB SOLN 0.5 MG/2.5 ML (ATROVENT) INH SCH (18:55)
[2016-05-07] MEDS: ARFORMOTEROL NEB SOLUTION (BROVANA) 15 MCG/2 ML VIAL IH SCH (18:55)
--- NOTE | 2016-05-07 19:15 | NUR ---
Report received, care assumed.
--- NOTE | 2016-05-07 19:19 | NUR ---
1350- Cardizem gtt to infuse at this time. Violeta has complaints of SOA and breathing treatment times 2 given this afternoon. Sp02 increased to 3LNC She is up with 1 assist to the bathroom on two occasions. She is alert and oriented, makes needs known and able to cooperate with treatments. She has a wet cough and she catches yellow sputum in kleenex. Family at the bedside for the majority of shift. Cardizem gtt infusing into LAC. Care is relinquished and report given to Sol GOINS
--- NOTE | 2016-05-07 20:35 | NUR ---
Pt took evening medications whole in applesauce. No difficulties. Pt denies needs. Appears to be comfortable, no c/o SOA. O2 on at 4L per NC. Daughter left for the evening. No other needs. Call light in order.
[2016-05-07] MEDS: MIRTAZAPINE 15 MG (REMERON) TABLET PO SCH (20:39)
[2016-05-07] MEDS: clonazePAM 0.5 MG (KlonoPIN) TAB PO SCH (20:39)
[2016-05-07] MEDS: BUDESONIDE NEBS 0.5 MG/2ML (PULMICORT) AMP INH SCH (21:00)
[2016-05-07 21:21] LABS: ANION GAP 10.1 MEQ/L (3-15)
[2016-05-07] MEDS ORDERED: POTASSIUM CITRATE 10 MEQ PO ONE (21:45)
--- NOTE | 2016-05-07 22:35 | NUR ---
Administered potassium citrate 40 meq crushed in applesauce. Pt denied other needs. Stated she just wanted to go back to sleep. Will continue to monitor.
--- NOTE | 2016-05-07 23:00 | NUR ---
Pt up to BSC with assist of one. Pt very weak. Does not transfer very well. Voided without difficulty. Transferred back to bed with assist of one, repositioned in bed. No other needs. Call light in reach. Side rails up times two.
[2016-05-08] VITALS (23 sets, daily range): BP systolic 90–133; BP diastolic 46–71
--- NOTE | 2016-05-08 01:20 | NUR ---
Pt up to BSC with assist of one, transferred poorly, very weak. Voided without difficulty then transferred back to bed. No other needs. Call light in reach.
[2016-05-08 01:33] LABS: ANION GAP 10.5 MEQ/L (3-15)
--- NOTE | 2016-05-08 02:45 | NUR ---
Pt continues on Cardizem drip. Heart rate 110's. Has been showing some sinus rhythm activity on telemetry then reverts to A-fib. Will continue to monitor.
--- NOTE | 2016-05-08 05:00 | NUR ---
Pt awake. Up to BSC, unable to void. C/O SOA. Changed oxymask to NC at 4L. Pt has a lot of loose rhonchi in upper airway. Pt states "it's all in my throat. I can't take a deep breath". Encouraged pt to cough, pt has very weak cough effort. Pt also c/o that she didn't have enough water. Explained the need for fluid restriction again. Pt stated she understood. Assisted pt back to bed and repositioned with HOB elevated at nearly 90 degrees. Pt's O2 sat >94%. Will continue to monitor pt's status. No other needs.
--- NOTE | 2016-05-08 05:15 | NUR ---
Pt sleeping. Respirations even et unlabored. O2 sats 96% on 4L per NC. Decreased Cardizem drip to 10 mg/hr. Pt's heart rate upper 90's to 107. Rhythm is mostly sinus, still has some A-fib. Will continue to monitor.
[2016-05-08 06:50] LABS: MEAN CORPUSCULAR HGB CONC 31.9 g/dL (31.0-37.0); MEAN CORPUSCULAR VOLUME 80 FL (80-100); MEAN PLATELET VOLUME 9.8 FL (6.0-9.5); PLATELET COUNT 272 10^3uL (150-450); WHITE BLOOD COUNT 9.24 10^3uL (4.0-11.0)
[2016-05-08 06:58] LABS: MEAN CORPUSCULAR HEMOGLOBIN 25.5 PG (26.0-34.0)
[2016-05-08 07:00] LABS: ALBUMIN 3.1 g/dL (3.4-5.0); PHOSPHORUS 2.8 mg/dL (2.4-4.9)
[2016-05-08 07:24] LABS: ANISOCYTOSIS SLIGHT; BAND NEUTROPHILS % 4 % (0-6); EOSINOPHILS % 1 % (0-4); LYMPHOCYTES # 0.5 #; MONOCYTES # 0.6 #; MONOCYTES % 7 % (3-11); RBC MORPH SEE REFERENCE (NORMAL); SEGMENTED NEUTROPHILS % 82 % (51-67); TOTAL CELLS COUNTED 100
[2016-05-08] MEDS: clonazePAM 0.5 MG (KlonoPIN) TAB PO SCH ×2 (08:13→21:10)
[2016-05-08] MEDS: CHOLECALCIFEROL 1000 INT UNITS (VITAMIN D3) TABLET PO SCH (08:14)
[2016-05-08] MEDS: CYANOCOBALAMIN 1000 MCG (VITAMIN B-12) TABLET PO SCH (08:14)
[2016-05-08] MEDS: MULTIVITAMIN W/MINERALS (THERAGRAN M) TABLET PO SCH (08:14)
[2016-05-08] MEDS: BUDESONIDE NEBS 0.5 MG/2ML (PULMICORT) AMP INH SCH ×2 (08:33→20:08)
[2016-05-08] MEDS: IPRATROPIUM 0.02% NEB SOLN 0.5 MG/2.5 ML (ATROVENT) INH SCH ×2 (08:33→20:08)
[2016-05-08] MEDS: ARFORMOTEROL NEB SOLUTION (BROVANA) 15 MCG/2 ML VIAL IH SCH ×2 (08:33→20:08)
--- NOTE | 2016-05-08 08:42 | NUR ---
Pt. c/o feeling very weak, loose NPC. BS diminished with crackles. O2 @ 4L nc, 98%.
[2016-05-08] MEDS ORDERED: cefTRIAXone 1 GM (ROCEPHIN) VIAL IM SCH (09:00)
[2016-05-08] MEDS ORDERED: MULTIVITS TH W FE OTHER MIN PO SCH (09:00)
[2016-05-08] MEDS ORDERED: NON-FORMULARY MEDICATION 1 EA EA (Cholecalciferol (Vitamin D3) (Vitamin D-3) 2,000 UNIT) PO SCH (09:00)
[2016-05-08] MEDS: NS FLUSH 3 ML DAILY IV SCH (09:00)
--- NOTE | 2016-05-08 10:15 | NUR ---
Cardizem gtt down to 4. Ativan .5 mg po given for anxiety. Pt up to BSC voided only 25 cc of urine, but had a very wet depends that was changed. Pt continues to state she is so weak, but denies pain.
--- NOTE | 2016-05-08 11:40 | NUR ---
Bunny giron. New orders received to start Lanoxin. Lanoxin 0.375mg IV push given as ordered. Pt has oxygen on at 4L/NC.
[2016-05-08] MEDS ORDERED: DIGOXIN 0.25 MG/ML (LANOXIN) 2 ML AMP IV ONE (12:00)
--- NOTE | 2016-05-08 12:40 | NUR ---
MULTIDISCIPLINARY MTG/DR. CLARK: Pt. on Cardizem which will be up on 24 hours at 13:00. Pt. will then be started on amiodarone and digoxin. Pt. is sill tachy and is in and out of SR to afib. Pt. is on a fluid restriction. Pt. was given Ativan this morning and she has breathing treatments ordered. No discharge needs identified at this time.
--- NOTE | 2016-05-08 13:01 | NUR ---
NUTRITION ASSESSMENT Level 1 Patient: Violeta Morris Age/Sex: 89/F Date Screened: 05-08-16 Weight: 138.1#/62.8 kg Height: 62 inches Primary Diagnosis: a fib, hyponatremia Diet Order: cardiac, fluid restriction Relevant labs: sodium 129 (116 on admit), glucose 147 Food allergies: N Nutrition Assessment Criteria Age over 80: 4 points Body Mass Index (BMI) under 19: N Admission Screening Indicates Risk? N Moderate/High Risk Diagnosis: N TPN or PPN: N NPO or clear liquid diet: N Serum Glucose <70 or >180: N Hgb A1c >6.7: N/A Total: 4 points Risk Screen: __ Patient at low nutritional risk based on available data; reevaluate in 5-7 days _X_ Patient at moderate nutritional risk based on available data; reevaluate in 3-5 days __ Patient at high nutritional risk; complete Nutrition Assessment within 48 hours of admission.
--- NOTE | 2016-05-08 14:00 | NUR ---
Pt up to BSC with wet brief, but voided 400cc, and urine specimen collected and sent to lab. IV infiltrated. New IV started with 22g intracath in LFA x 3 attempts, flushed with 10cc NS. Rocephin 1 gm IV started in new IV site. Site wrapped with coban.
[2016-05-08] MEDS: DILTIAZEM CD 180 MG (CARDIZEM CD) CAP PO SCH (14:07)
[2016-05-08] MEDS: cefTRIAXone SODIUM 1,000 MG in SODIUM CHLORIDE 50 ML IV SCH (15:00)
[2016-05-08 15:36] LABS: URINE POTASSIUM 18 mmoL/L (12-75)
--- NOTE | 2016-05-08 16:15 | NUR ---
Dr Saenz present to talk to pt about condition. Order received to have a PICC placed or a central line. [facility] called to inform of need of line. Pt wishes to talk with daughter before signing a permit for either.
[2016-05-08] MEDS: ALBUTEROL 0.083% NEB SOLUTION 2.5 MG/3 ML VIAL INH PRN (16:18)
[2016-05-08 16:31] LABS: IRON 20 ug/dL (50-170); UNBOUND IRON CONTENT 231 ug/dl (126-382)
[2016-05-08] MEDS ORDERED: AMIODARONE FOR BOLUS 150 MG in D5W (IVPB) 100 ML IV ONE (17:05)
[2016-05-08] MEDS: warFARin 2 MG (COUMADIN) TAB PO SCH (17:33)
[2016-05-08] MEDS ORDERED: AMIODARONE FOR BOLUS 900 MG in D5W IV (EXCEL) 482 ML IV ONE (18:00)
--- NOTE | 2016-05-08 18:00 | NUR ---
Lanoxin IV 0.125mg push given. Daughter present and asking questions about the need for PICC or Central line and need for one. Pt and daughter discussed at length about line. The decision was made by pt to not have a picc or central line. PANTS BUSHELER present and he was able to place a second line in the hand, 24 g intracath, site secured.
[2016-05-08] MEDS: DIGOXIN 0.25 MG/ML (LANOXIN) 2 ML AMP IV SCH (18:17)
[2016-05-08] MEDS ORDERED: LIDOCAINE PF 1% (XYLOCAINE) 2 ML VIAL INJ ONE (18:37)
--- NOTE | 2016-05-08 18:50 | NUR ---
Amiodarone bolus started in first site with filter attached. IV NS with antibiotics moved to second site in hand. Pt was able to eat apples and some mashed potatoes. Pt continues to have the monitor on showing SR with PAC. Will continue to monitor closely.
--- NOTE | 2016-05-08 19:10 | NUR ---
Report received, care assumed. BEULAH Bell in room with patient initiating a 2nd IV site.
[2016-05-08] MEDS: MIRTAZAPINE 15 MG (REMERON) TABLET PO SCH (21:10)
--- NOTE | 2016-05-08 22:30 | NUR ---
Pt appears to be sleeping, eyes closed, respirations even et unlabored. No signs discomfort. Amiodarone drip infusing at 33.3 mls/hr. Heart rate 110's. No needs at this time. Pt was up to BSC earlier in the evening. Transferred well with two assist. Pt was incontinent, ashwin care provided. Was unable to void in BSC, stated she was too weak. Call light in reach. Will continue to monitor.
[2016-05-09] VITALS (19 sets, daily range): BP systolic 106–151; BP diastolic 54–83
[2016-05-09] MEDS: DIGOXIN 0.25 MG/ML (LANOXIN) 2 ML AMP IV SCH (00:13)
--- NOTE | 2016-05-09 01:00 | NUR ---
Pt appears to be sleeping. Eyes closed, respirations even et unlabored. No signs discomfort. Occ. cough present, non-productive, weak effort. Heart rate 103, Amiodarone continues to infuse. No needs at this time. Call light in reach.
--- NOTE | 2016-05-09 04:45 | NUR ---
Pt's O2 sat started dropping to mid-80's. Repositioned pt in bed with HOB elevated more. O2 sats came up to 94%. Pt continues to sleep. Respirations even et unlabored. No signs discomfort. No needs at this time.
--- NOTE | 2016-05-09 05:15 | NUR ---
Pt's O2 sat dropping to 84% while on O2 at 4L per NC. Pt is a "mouth breather". Placed oxymask at 2L with NC at 4L on pt. O2 sat fluctuates between 93-96% now. Pt briefly woke up. Asked pt if she needed to use BSC, she shook head "no", asked if she was wet, pt shook head "no". Asked pt if she wanted me to leave her alone to sleep, pt nodded head "yes". Will allow pt to sleep and continue to monitor. Call light in reach.
[2016-05-09 06:19] LABS: MEAN CORPUSCULAR VOLUME 82 FL (80-100); MEAN PLATELET VOLUME 9.4 FL (6.0-9.5); PLATELET COUNT 339 10^3uL (150-450); WHITE BLOOD COUNT 8.63 10^3uL (4.0-11.0)
[2016-05-09 06:25] LABS: MEAN CORPUSCULAR HGB CONC 30.6 g/dL (31.0-37.0)
[2016-05-09 06:30] LABS: BAND NEUTROPHILS % 3 % (0-6); EOSINOPHILS % 4 % (0-4); HYPOCHROMASIA SLIGHT; LYMPHOCYTES # 0.7 #; MONOCYTES # 0.6 #; MONOCYTES % 7 % (3-11); RBC MORPH SEE REFERENCE (NORMAL); SEGMENTED NEUTROPHILS % 78 % (51-67); TOTAL CELLS COUNTED 100
[2016-05-09 06:31] LABS: ANISOCYTOSIS SLIGHT; POIKILOCYTOSIS SLIGHT
[2016-05-09 06:49] LABS: ALBUMIN 2.9 g/dL (3.4-5.0); MAGNESIUM* 1.9 mg/dL (1.6-2.3); PHOSPHORUS 3.2 mg/dL (2.4-4.9)
[2016-05-09] MEDS ORDERED: ALBUTEROL/IPRATROPIUM 3MG-0.5MG/3ML (DUONEB) NEB VIAL INH PRN (08:05)
[2016-05-09] MEDS: ARFORMOTEROL NEB SOLUTION (BROVANA) 15 MCG/2 ML VIAL IH SCH (08:12)
[2016-05-09] MEDS: BUDESONIDE NEBS 0.5 MG/2ML (PULMICORT) AMP INH SCH (08:12)
[2016-05-09] MEDS: IPRATROPIUM 0.02% NEB SOLN 0.5 MG/2.5 ML (ATROVENT) INH SCH ×2 (08:12→21:00)
[2016-05-09] MEDS: MULTIVITAMIN W/MINERALS (THERAGRAN M) TABLET PO SCH (08:51)
[2016-05-09] MEDS: NS FLUSH 3 ML DAILY IV SCH (08:52)
[2016-05-09] MEDS: DILTIAZEM CD 180 MG (CARDIZEM CD) CAP PO SCH (08:52)
[2016-05-09] MEDS: CYANOCOBALAMIN 1000 MCG (VITAMIN B-12) TABLET PO SCH (08:54)
[2016-05-09] MEDS: CHOLECALCIFEROL 1000 INT UNITS (VITAMIN D3) TABLET PO SCH (08:55)
[2016-05-09] MEDS: clonazePAM 0.5 MG (KlonoPIN) TAB PO SCH ×2 (08:56→20:27)
[2016-05-09] MEDS ORDERED: IPRATROPIUM 0.02% NEB SOLN 0.5 MG/2.5 ML (ATROVENT) INH SCH (09:00)
[2016-05-09] MEDS ORDERED: ARFORMOTEROL NEB SOLUTION (BROVANA) 15 MCG/2 ML VIAL IH SCH (09:00)
--- NOTE | 2016-05-09 14:03 | NUR ---
Pt. has been drowsy most of the day. Increased generalized weakness noted. She has little appetite, eating only bites off her trays. She is concerned about her prognosis and frequently asks, "what are they going to do with me". Pt. was on 4L/oxymask at start of shift, but placed on 4L/NC after her RT tx. She requested to be assisted to [facility] at 1245, which made her very short of breath. SpO2 dropped to 82% with getting up to commode while on 4L/NC. She had been incontinent at the time as well. After pt. returned to bed she felt too weak to feed herself and requested nurse cut up the peaches on her lunch tray and feed them to her. She was able to chew and swallow without difficulty, but was notably dyspneic. Discussed using a bedpan, if needed, if she feels too short of breath to get to commode. She continues on 800ml fluid restriction and has what she is alotted from 7a-3p in ice chips at bedside per her request.
[2016-05-09] MEDS: cefTRIAXone SODIUM 1,000 MG in SODIUM CHLORIDE 50 ML IV SCH (14:06)
[2016-05-09] MEDS: warFARin 2 MG (COUMADIN) TAB PO SCH (16:45)
--- NOTE | 2016-05-09 18:56 | NUR ---
Patient rests under covers with eyes closed for the majority of the afternoon. VSS and WNL on 4LNC. Skin is pale and respirations are deep. Ashley awakes to voice and is alert. She reports weakness and desires ice chips. Violeta states "I cant go on living like this." Dr. Saenz consulted and comfort care measures is currently being discussed among the family
--- NOTE | 2016-05-09 19:00 | NUR ---
Report received, care assumed. Pt resting in bed. Daughter and son-in-law at bedside.
--- NOTE | 2016-05-09 19:01 | NUR ---
Report given to Sol GOINS and care relinquished.
[2016-05-09] MEDS ORDERED: ARTIFICIAL TEARS OPHTHALMIC OINTMENT 3.5 GM TUBE OU PRN (19:35)
[2016-05-09] MEDS ORDERED: SCOPOLAMINE 1.5 MG (TRANSDERM-SCOP) PATCH TD SCH (19:35)
[2016-05-09] MEDS ORDERED: ATROPINE SULFATE 1% OPHTH SOLN 5 ML BTL SL PRN (19:35)
[2016-05-09] MEDS ORDERED: ONDANSETRON 2 MG/ML (Z0FRAN) 2 ML VIAL IV PRN (19:35)
[2016-05-09] MEDS ORDERED: morphine INJ 4 MG/ML 1 ML SYRINGE IV PRN (19:35)
[2016-05-09] MEDS ORDERED: LORazepam 2 MG/ML (ATIVAN) 1 ML VIAL IV PRN (19:35)
--- NOTE | 2016-05-09 19:35 | NUR ---
New orders received. Pt made comfort care. No monitoring at this time. Pt on O2 at 2L per NC and 2L per oxy-mask. Pt denies other needs. Pt continues to be alert and oriented. Family remains at bedside.
[2016-05-09] MEDS: MIRTAZAPINE 15 MG (REMERON) TABLET PO SCH (20:27)
--- NOTE | 2016-05-09 20:40 | NUR ---
Dr. Saenz in to see pt. and family.
[2016-05-09] MEDS ORDERED: SIMvastatin 40 MG (ZOCOR) TAB PO SCH (21:00)
--- NOTE | 2016-05-09 22:15 | NUR ---
Oral care provided. Dentures cleaned. Pt wanted adhesive on dentures to be ready for in AM. Daughter applied adhesive. Pt calm and cooperative. Denies other needs. Reports being comfortable. Call light in reach. Family at bedside.
--- NOTE | 2016-05-10 01:10 | NUR ---
Pt appears to be sleeping. Eyes closed, respirations even et unlabored. No signs SOA or discomfort. O2 on at 2L per NC and 2L per oxy-mask. Family remains at bedside. No needs at this time. Call light in reach. Will continue to monitor.
--- NOTE | 2016-05-10 04:48 | NUR ---
Continues resting without needs. Pt was checked for incontinence, none apparent. Repositioned pt with pillows. No signs discomfort or SOA. No changes to O2 delivery. No needs at this time. Family sleeping on cot in room.
--- NOTE | 2016-05-10 06:05 | NUR ---
Pt has slept well tonight with no periods of SOA or c/o discomfort. No changes to oxygen delivery. Pt has been easy to rouse, responds to questions appropriately. Family is awake at bedside. Pt was incontinent during the night, ashwin care provided. Offered ice chips this morning, pt declined. No other needs at this time.
--- NOTE | 2016-05-10 07:15 | NUR ---
See ICU assessment
[2016-05-10 08:00] VITALS: BP 150/59
--- NOTE | 2016-05-10 08:00 | NUR ---
O2 per nc @ 2 L O2 sat 79% --- O@ sat c nc and oxymask @ 2 L 91% --- daughter requested both - RR 32 - secretions gurgling in upper airway with each breathe - repeats "I want to " --- "just let me go to sleep"
--- NOTE | 2016-05-10 08:20 | NUR ---
Morphine 2 mg slow IV push for air hunger as ordered
[2016-05-10] MEDS ORDERED: morphine INJ 4 MG/ML 1 ML SYRINGE IV PRN (08:22)
[2016-05-10] MEDS ORDERED: NS FLUSH 3 ML PRN IV ×2 (08:30→16:50)
[2016-05-10] MEDS ORDERED: NS FLUSH 10 ML PRN IV ×2 (08:30→16:50)
--- NOTE | 2016-05-10 08:30 | NUR ---
Ativan 1 mg slow IV push for anxiety - "just let me "
[2016-05-10] MEDS: clonazePAM 0.5 MG (KlonoPIN) TAB PO SCH (09:00)
[2016-05-10] MEDS ORDERED: NS FLUSH 3 ML DAILY IV SCH (09:00)
[2016-05-10] MEDS ORDERED: AMIODARONE 200 MG (CORDARONE) TAB PO SCH (09:00)
--- NOTE | 2016-05-10 09:05 | NUR ---
Cares provided - turned to R side - back rub - pillow supports - sleeping RR 20
--- NOTE | 2016-05-10 09:27 | NUR ---
Unable to swallow pills --> po clonazepam held
[2016-05-10] MEDS ORDERED: ACETAMINOPHEN 650 MG SUPP (TYLENOL) PR PRN (10:15)
[2016-05-10] MEDS ORDERED: BISACODYL 10 MG SUPP (DULCOLAX) PR PRN (10:15)
[2016-05-10] MEDS ORDERED: ACETAMINOPHEN 325 MG TAB (TYLENOL) PO PRN (10:31)
[2016-05-10] MEDS ORDERED: ALBUTEROL 0.083% NEB SOLUTION 2.5 MG/3 ML VIAL INH PRN (10:31)
--- NOTE | 2016-05-10 10:40 | NUR ---
Condition report called to VAZQUEZ GOINS
[2016-05-10] MEDS ORDERED: ATROPINE SULFATE 1% OPHTH SOLN 5 ML BTL SL PRN (10:45)
[2016-05-10] MEDS ORDERED: ARTIFICIAL TEARS OPHTHALMIC OINTMENT 3.5 GM TUBE OU PRN (10:45)
--- NOTE | 2016-05-10 10:48 | NUR ---
Pt transferred from ICU to room 305 at this time. Pt on 4L oxymask for comfort with Sveta RT approval. Family at bedside. Positioned on Rt side, heels elevated on pillows.
--- NOTE | 2016-05-10 10:55 | NUR ---
Transfer to room 305 per cart - transfer per transfer board X4 assist - daughter carried personal belongings to room Addendum: 05/10/16 at 1218 by Pearl Deshpande RN Transferred to room 305 c O2 per oxymask @ 4 L
[2016-05-10] MEDS ORDERED: ONDANSETRON 2 MG/ML (Z0FRAN) 2 ML VIAL IV PRN (11:35)
--- NOTE | 2016-05-10 12:42 | NUR ---
Pt resting in bed, no s/s distress. Family at bedside. Held lunch tray for now as she is resting. Remains on 4L oxymask.
[2016-05-10] MEDS: morphine INJ 4 MG/ML 1 ML SYRINGE IV PRN ×2 (16:53→19:05)
[2016-05-10] MEDS: LORazepam 2 MG/ML (ATIVAN) 1 ML VIAL IV PRN ×2 (17:01→19:05)
--- NOTE | 2016-05-10 17:11 | NUR ---
pt short of breath and family is requesting morphine and ativan. Pt stating please help me . Morphine 2 mg given IV and Ativan given 1mg IV.
--- NOTE | 2016-05-10 18:14 | NUR ---
Pt resting in bed- seems comfortable. Family agree that she seems comfortable.
--- NOTE | 2016-05-10 19:03 | NUR ---
MS 2mg administered IV, along with Ativan 1mg IV per family request per Eden GOINS. Patient rests well. Respirations unlabored.Skin warm and dry. Color pale. Family at bedside. Family has no concerns at this time.
--- NOTE | 2016-05-10 19:30 | NUR ---
Patient resting well. Respirations even and nonlabored. Family at bedside.
--- NOTE | 2016-05-10 19:45 | NUR ---
Nurse and nurse aide ready to turn patient and reposition her. Bottom plate removed and placed in denture cup as it was loose. While getting ready to turn patient, she took a breath, then there were no further breaths taken. No radial pulse. No Apical pulse heard. Family in room and told that relative had passed. Nursing stayed with family, until they wanted to be alone with mother. Vonnie Assistant Store Manager Trainee notified. Dr Lucia notified. Vonnie verified patients status. Family wanting a little time and will let us know when to call the home. Patient pronounced at 19:47. 20:52-[facility] here. Body released to Lester. Paperwork signed. Daughter took mothers wedding ring. Lester Arrington took patients dentures. Family appreciative of care their mother received during her hospitalization.
[2016-05-10] MEDS ORDERED: IPRATROPIUM 0.02% NEB SOLN 0.5 MG/2.5 ML (ATROVENT) INH PRN (21:00)
[2016-05-11] MEDS ORDERED: NS FLUSH 3 ML DAILY IV SCH (09:00)
[2016-05-12] MEDS ORDERED: SCOPOLAMINE PATCH REMOVAL TOP SCH (19:34)
[2016-05-12] MEDS ORDERED: PATCH REMOVAL TOP SCH (19:59)
[2016-05-12] MEDS ORDERED: SCOPOLAMINE 1.5 MG (TRANSDERM-SCOP) PATCH TD SCH (20:00)
== END 2016-05-10 19:47 | disposition expired | DRG 308 ==
LOC: EDUNIT# 09:02 → ED 09:03 → ICU 11:00 → MED/SURG 05-10 10:47
PROVIDERS: ADMIT Family Medicine; ATTEND Family Medicine
DX: I48.91 Unspecified atrial fibrillation (principal); J96.20 Acute and chronic respiratory failure, unspecified whether with hypoxia or hypercapnia; E87.1 Hypo-osmolality and hyponatremia; N39.0 Urinary tract infection, site not specified; J44.1 Chronic obstructive pulmonary disease with (acute) exacerbation; Z66 Do not resuscitate; Z51.5 Encounter for palliative care; C50.911 Malignant neoplasm of unspecified site of right female breast; E87.6 Hypokalemia; I10 Essential (primary) hypertension; Z79.01 Long term (current) use of anticoagulants; Z99.81 Dependence on supplemental oxygen; Z95.2 Presence of prosthetic heart valve
CPT/HCPCS: 36415; 51701; 71010; 80048; 80053; 80069; 81003; 81015; 82550; 82553; 82728; 82803; 83540; 83550; 83605; 83735; 83880; 83930; 83935; 84132; 84133; 84295; 84300; 84443; 84478; 84484; 85025; 85610; 86140; 87040; 87077; 87088; 87186; 93005; 93010; 94640; 96361; 96374; 99285